=== PATIENT | male | born 1955 | race Caucasian/White ===

== ENCOUNTER 2024-04-16 11:20 | Inpatient (IN) | payer OTHER, SELFPAY ==
[2024-04-14] VITALS (12 sets, daily range): BP systolic 109–145; BP diastolic 58–100; BMI 23.0; BMI 22.6
[2024-04-14 01:48] LABS: % Eosinophils 1.6 % (0-6); % Immature Granulocytes 0.7 % (0-0.5); % Lymphocytes 12.5 % (20.5-51.1); % Monocytes 5.8 % (1.7-9.3); % Neutrophils 78.4 % (42.2-75.2); Absolute Basophils 0.1 10^3/uL (0-0.2); Absolute Eosinophils 0.1 10^3/uL (0-0.7); Absolute Immature Granulocytes 0.1 10^3/uL (0-0.05); Absolute Lymphocytes 0.8 10^3/uL (1.2-3.4); Absolute Monocytes 0.4 10^3/uL (0.1-0.6); Absolute Neutrophils 5.3 10^3/uL (1.4-6.5); Hematocrit 29.7 % (39.0-52.0); Hemoglobin 9.9 g/dL (13.0-18.0); Mean Corp Hgb Conc. 33.3 g/dL (33.0-37.0); Mean Corpuscular Hgb 31.6 pg (27.0-31.0); Mean Corpuscular Volume 94.9 fL (80.0-94.0); Mean Platelet Volume 9.9 fL (7.4-10.4); Nucleated Red Blood Cells % 0 % (-); Platelet Count 191 10^3/uL (130-400); Red Blood Cell Count 3.13 10^6/uL (4.70-6.10); Red Cell Dist. Width 14.3 % (11.5-14.5); White Blood Cell Count 6.7 10^3/uL (4.8-10.8)
[2024-04-14 02:05] LABS: ALT (SGPT) 18 U/L (0-50); AST (SGOT) 26 U/L (17-59); Albumin 4.1 g/dl (3.5-5.0); Alkaline Phosphatase 133 U/L (38-126); Blood Urea Nitrogen 17 mg/dl (9-20); Calcium 8.9 mg/dl (8.4-10.2); Carbon Dioxide 18 mmol/L (22-30); Chloride 92 mmol/L (98-107); Estimated Creatinine Clearance 64 ml/min; Glucose 187 mg/dl (70-99); Potassium 5.3 mmol/L (3.5-5.1); Sodium 124 mmol/L (135-145); Total Bilirubin 1.2 mg/dl (0.2-1.3); Total Protein 6.3 g/dl (6.3-8.2); eGFR > 60.00
--- NOTE | 2024-04-14 02:06 | ED.GENMED ---
History of Present Illness
General
Chief Complaint: Fainting/Passed Out
Source: patient
Time Seen by Provider: 04/14/24 01:52
History of Present Illness
History of Present Illness:
68-year-old male presents emergency room via ambulance after suffering a syncopal episode at home. Patient been suffering from nausea vomiting diarrhea for the past couple days. Today he went to go to the bathroom and began feeling dizzy. He fell
to the ground. He does believe he lost consciousness. Patient complaining that the collar that was placed on him by EMS is uncomfortable but no other complaints.
Past History
Past History
ED Past Medical History: CHF, HTN, Hypercholesterolemia, NIDDM and AL (2001)
ED Past Surgical History: Cardiac (Stents)
Social History
Tobacco: Smoker
Alcohol: Occasional
Personal:
Living: alone
Phy Exam
Physical Exam
Physical Exam:
General: Awake, Alert, Oriented X3. No acute distress.
Vitals: unremarkable
Head: Atraumatic
Eyes: Pupils equal, EOMI
Throat: Airway intact, no exudates, dry mucosa
Neck: Trachea midline
Lungs: Clear and equal b/l
Heart: Regular rate, no murmurs
Abd: Soft, Nontender, No pulsatile mass
Back: No significant tenderness palpation along the thoracic or lumbar spine
Neuro: Nonfocal
Skin: Warm, dry, no rash
Extremities: pulses equal b/l, no edema
Course
Orders/Labs/Results
Orders:
Orders
04/14/24
HF Check Daily Weights Video Routine
HF Limiting Fluids Video Routine
HF Limiting Sodium Video Routine
HF Recognizing Symptoms Video Routine
HF Taking Medicines Video Routine
HF What is it? Video Routine
HF When to Call for Help Video Routine
04/14/24 01:23
EKG [Electrocardiogram (*1)] Urgent
Reason for Study: Syncope
04/14/24 01:24
EKG- Treatment ONCE
04/14/24 01:38
Complete Blood Count/With Diff Urgent
Comprehensive Metabolic Panel Urgent
04/14/24 01:42
Troponin I Urgent
04/14/24 02:05
CT Cervical Spine W/o Iv Contr Urgent
Comment:
Reason For Exam: neck pain s/p fall
CT Head W/o Iv Contrast Urgent
Comment:
Reason For Exam: fall, head injury
04/14/24 02:07
0.9% Sodium Chloride 500 ml [Nss] 500 ml IV BOLUS
Ondansetron Injectable [Zofran] 4 mg IV NOW STA
04/14/24 04:58
Admit/Transfer Patient As Directed
Co-Sign Provider:
Level of Care: Observation services
Assign to:: Telemetry
Physician / Group: hospitalist
Diagnosis: syncope, hyponatremia
Reason for Telemetry: Syncope
Date to Stop Telemetry: 04/16/24
Time to Stop Telemetry: 11:00
PRN Pain Medication Management As Directed
May give lesser potent ordered pain med per pt: Yes
preference::
Protocol:: Medication orders for pain may be administered in a
manner that supports deferring to patient preference
when the pt is:
- Requesting an ordered lesser potent pain medication.
Least to most potent pain medications are defined
as: acetaminophen < NSAID < tramadol < opioids
(morphine, oxycodone, hydromorphone).
- Requesting a lesser dose of the same medication IF
ORDERED.
- Requesting a less intrusive route of administration
if both routes are prescribed by the provider (PO <
IV).
04/14/24 05:00
Code Status As Directed
Resuscitation Status: Do not resuscitate
Reached after discussion with pt or family/Healthcare POA: Yes
DNR Bracelet Application ONCE
04/14/24 05:57
Basic Metabolic Panel IN AM
Cortisol, Random IN AM
NT-proBNP IN AM
TSH IN AM
04/14/24 Breakfast
1800 calorie (15 carb) Diabetic
At Your Request: Full Participation
Does patient need a safe tray?: No
Fluid Restriction: 1200 mL/day (40 oz)
04/14/24 06:05
Acetaminophen [Tylenol] 650 mg PO Q4HPRN PRN
Docusate W/Senna [Senokot-S] 1 tablet PO BIDPRN PRN
Ipratropium/Albuterol Sulfate [Duoneb] 3 ml INH R Q4HPRN PRN
04/14/24 06:05
Echo 2D MMode Color/Doppler Routine
Reason for Study: syncope, h/o diastolic chf
CARDIOLOGY CONSULT Routine
Consulting Provider: Florentin Ross
Was physician already notified: No
Reason for consult: syncope, bradycardia w/ slow afib/flutter vs junctional rhythm
Consult Notification Routine
Specialty to Notify: Cardiology
Date consulting provider notified: 04/14/24
Time consulting provider notified: 07:51
Notified:: Provider
Comment: TT Notified
Consult Notification Routine
Specialty to Notify: Nephrology
Date consulting provider notified: 04/14/24
Time consulting provider notified: 07:54
Notified:: Provider
Comment: TT Notified
NEPHROLOGY CONSULT Routine
Consulting Provider: Radha Quevedo
Was physician already notified: No
Reason for consult: hyponatremia to 124, syncope.
Activity As Directed
Activity Level: With Assistance
Bedside Glucose Monitoring As Directed
Frequency: AC&HS
Orthostatic Vital Signs As Directed
Orthostatic VS Frequency: Daily
Vital Signs As Directed
Frequency: Per unit guidelines
Weight As Directed
Frequency: Daily
DX Deep Vein Thrombosis Video Routine
04/14/24 07:00
Dextrose 50%-Water [Dextrose 50% Syringe] 12.5 grams IV [id number] PRN
Flush (0.9% Sodium Chloride) [Flush (Nss)] See Dose Instructions IV PER PROTOCOL
Glucagon [GlucaGen] 1 mg IM PRN PRN
04/14/24 07:30
Insulin Aspart Corrective Low [Novolog Flexpen-Low Resistance] See Protocol SC AC
04/14/24 08:00
Amlodipine [Norvasc] 5 mg PO DAILY
Aspirin Low Dose EC [Aspir Low (Enteric Coated)] 81 mg PO DAILY
Budesonide/Formoterol 160/4.5 [Symbicort 160/4.5 Mcg Inhaler] 2 puff INH R BID
04/14/24 08:17
Norovirus by PCR Routine
PAULINE Source: Feces/Stool
Specimen Description:
04/14/24 09:14
Pt Screening Request from [facility] Routine
04/14/24 09:30
Sodium Zirconium Cyclosilicate [Lokelma] 10 gram PO TID@0600,1400,1800
04/14/24 10:15
0.9% Sodium Chloride 1000 ml [Nss] 1,000 ml IV 75 mls/hr
04/14/24 10:36
Osmolality, Random Urine Routine
Date Specimen was Collected: 04/14/24
Time Specimen was Collected: 10:32
Urinalysis Reflex To Culture Urgent
Date Specimen was Collected: 04/14/24
Time Specimen was Collected: 10:32
Urine Microscopic Reflex Cult Urgent
Urine Sodium Routine
Date Specimen was Collected: 04/14/24
Time Specimen was Collected: 10:32
04/14/24 10:51
Notify MD As Directed
Notify physician if: PTT is greater than or equal to 200.
04/14/24 11:00
Heparin 55259 Units/250 ml 25,000 units in 250 ml IV PER PROTOCOL
Weight to be used for heparin protocol in kilograms (kg):: 77.7
Protocol:: Cardiac Tx/Acute Coronary
PTT Goal Range to be used:: PTT 73 to 111 seconds
Order type:: Initial
INITIAL Infusion Dose (UNITS/KG/hr) & then follow protocol:: 12 units/kg/hr
Infusion Dose in UNITS/hr & then follow protocol (UNITS/hr):: 950
INFUSION RATE in mL/hr & then follow protocol (mL/hr):: 9.5
PTT less than or equal to 64 seconds:: Increase rate by 200 units/hr (+ 2 mL/hr)
PTT 64.1 to 72.9 seconds:: Increase rate by 100 units/hr (+ 1 mL/hr)
PTT 73 to 111 seconds:: Target Range. No change in rate.
PTT 111.1 to 130.9 seconds:: Decrease rate by 100 units/hr (- 1 mL/hr)
PTT 131 to 199.9 seconds:: HOLD for 1 hr. Then decrease rate by 200 units/hr (- 2 mL/hr)
PTT greater than or equal to 200 seconds:: HOLD for 2 hrs & Notify Provider. Then decrease by 200 units/hr (-
2 mL/hr)
Lab follow-up:: Each change, PTT q6h until 2 consecutive are therapeutic. Then PTT
daily.
04/14/24 11:26
PTT Urgent
Comment: Obtain baseline before beginning heparin infusion if not already collected
04/14/24 12:32
Furosemide [Lasix] 40 mg IV NOW STA
04/14/24 16:21
Bladder Scan As Directed
Follow Bladder Retention/Intermittent Cath Algorithm?: Yes
PRN if no void in __ hours: 6
Frequency: Per Retention Algorithm
If Bladder Scan Result >: 400
then:: Straight cath
Straight Cath As Directed
Frequency: Per Retention Algorithm
Additional Instructions: straight cath as needed per acute urinary retention algorithm for 24 hrs
Additional Instructions: for bladder scan greater than 400 mL
04/14/24 17:45
Basic Metabolic Panel Routine
04/14/24 18:00
Enoxaparin Sodium [Lovenox] 40 mg SC QPM
04/14/24 19:23
PTT Routine
04/14/24 21:02
Melatonin 5 mg PO NOW STA
04/14/24 22:00
Atorvastatin [Lipitor] 40 mg PO HS
Ramipril [Altace] 10 mg PO HS
Sotalol [Betapace] 80 mg PO HS
finasteride [Propecia] See Dose Instructions PO HS
04/15/24 03:33
PTT Routine
04/15/24 09:11
Furosemide [Lasix] 80 mg IV NOW ONE
04/15/24 12:04
Basic Metabolic Panel Routine
PTT Routine
04/15/24 12:55
INT (Intravenous Needle Therapy) As Directed
Comment: #20 IV gauge catheter
Notify MD As Directed
Notify physician if: no consent on chart
Surgical Procedure As Directed
Surgical Procedure: PPM
04/15/24 13:03
Protein/Creat Ratio (Random) Routine
Date Specimen was Collected: 04/15/24
Time Specimen was Collected: 13:02
04/15/24 17:58
PTT Urgent
04/15/24 20:46
Melatonin 5 mg PO NOW STA
04/16/24 00:43
PTT Urgent
04/16/24 Breakfast
NPO
Allow oral meds: Yes
Allow clear liquids: Sips of Clears
NPO for procedure after (time): midnight
04/16/24 06:09
Basic Metabolic Panel IN AM
Complete Blood Count/No Diff Q2D
Comment: Notify MD if platelet count is <130,000 or decreases by 50% from baseline
Glycohemoglobin (HgbA1c) Routine
PTT Routine
04/16/24 06:53
Bupivacaine Pf 0.5% [Sensorcaine 0.5% Single Dose] 30 ml .ROUTE .STK-MED ONE
Lidocaine 1% [Xylocaine 1%] 20 ml .ROUTE .STK-MED ONE
04/16/24 07:00
0.9% Sod Chloride 500 ml Irr [Nss Irrigation Bottle] 500 ml .ROUTE .STK-MED
CeFAZolin 1 GRAM [Ancef] 5 ml .ROUTE .STK-MED
CeFAZolin 2 GRAM [Ancef] 2 grams in 10 ml .ROUTE .STK-MED
04/16/24 07:46
0.9% Sod Chloride 500 ml Irr [Nss Irrigation Bottle] 500 ml .ROUTE .STK-MED
04/16/24 07:47
CeFAZolin 1 GRAM [Ancef] 5 ml .ROUTE .STK-MED
CeFAZolin 2 GRAM [Ancef] 2 grams in 10 ml .ROUTE .STK-MED
04/16/24 08:00
CeFAZolin 1 GRAM [Ancef] 1 gram 0.9% Sod Chloride 250 ml Irr [Nss Irrigation Bottle] 250 ml IRRIG CATH
CeFAZolin 2 GRAM [Ancef] 2 grams in 10 ml IV CATH
04/16/24 08:08
Add On- LAB Routine
Tests Added?: Hba1c
04/16/24 09:15
Change in Level of Care [Level of Care Change] As Directed
Level of Care: Inpatient admission
Reason for Hospitalization: bradycardia requiring PPM
Expected length of stay greater than two midnights?: Yes
ELOS- Estimated Length of Stay in days: 3
I certify the patient meets the requirements for IP care: Yes
04/16/24 11:00
Fentanyl Citrate/Pf [Sublimaze] 100 mcg .ROUTE .STK-MED ONE
Lidocaine HCl/Pf [Xylocaine-Mpf 1% Vial] 50 mg .ROUTE .STK-MED ONE
Midazolam HCl [Versed] 2 mg .ROUTE .STK-MED ONE
Propofol [Diprivan] 40 ml .ROUTE .STK-MED
DC Protocol for Telemetry ONCE
04/16/24 11:30
Insulin Aspart Corrective Mod [Novolog Flexpen-Moderate Resistance] See Protocol SC AC
04/17/24 02:57
Basic Metabolic Panel IN AM
04/18/24 06:00
Basic Metabolic Panel IN AM
Complete Blood Count/No Diff Q2D
Comment: Notify MD if platelet count is <130,000 or decreases by 50% from baseline
04/19/24 06:00
Basic Metabolic Panel IN AM
04/20/24 06:00
Complete Blood Count/No Diff Q2D
Comment: Notify MD if platelet count is <130,000 or decreases by 50% from baseline
04/22/24 06:00
Complete Blood Count/No Diff Q2D
Comment: Notify MD if platelet count is <130,000 or decreases by 50% from baseline
04/24/24 06:00
Complete Blood Count/No Diff Q2D
Comment: Notify MD if platelet count is <130,000 or decreases by 50% from baseline
04/26/24 06:00
Complete Blood Count/No Diff Q2D
Comment: Notify MD if platelet count is <130,000 or decreases by 50% from baseline
04/28/24 06:00
Complete Blood Count/No Diff Q2D
Comment: Notify MD if platelet count is <130,000 or decreases by 50% from baseline
04/30/24 06:00
Complete Blood Count/No Diff Q2D
Comment: Notify MD if platelet count is <130,000 or decreases by 50% from baseline
Abnormal Lab Results
04/14/24 04/14/24 04/14/24
01:38 05:57 08:04
WBC
RBC 3.13 L 10^6/uL
(4.70-6.10)
Hgb 9.9 L g/dL
(13.0-18.0)
Hct 29.7 L %
(39.0-52.0)
MCV 94.9 H fL
(80.0-94.0)
MCH 31.6 H pg
(27.0-31.0)
Abs Immat Gran (auto) 0.1 H 10^3/uL
(0-0.05)
Absolute Lymphs (auto) 0.8 L 10^3/uL
(1.2-3.4)
Immature Gran % 0.7 H %
(0-0.5)
Neutrophils % 78.4 H %
(42.2-75.2)
Lymphocytes % 12.5 L %
(20.5-51.1)
APTT
Sodium 124 L mmol/L 124 L mmol/L
(135-145) (135-145)
Potassium 5.3 H mmol/L 5.3 H mmol/L
(3.5-5.1) (3.5-5.1)
Chloride 92 L mmol/L 94 L mmol/L
(98-107) (98-107)
Carbon Dioxide 18 L mmol/L 20 L mmol/L
(22-30) (22-30)
BUN
Creatinine
Glucose 187 H mg/dl 135 H mg/dl
(70-99) (70-99)
Hemoglobin A1c
Alkaline Phosphatase 133 H U/L
(38-126)
Urine Ketones
Urine Bilirubin
Urine RBC
Urine Sodium
Urine Glucose
Urine Albumin (Reflex)
POC Glucose 124 H mg/dl
(70-99)
04/14/24 04/14/24
10:36 13:56 17:43
WBC
RBC
Hgb
Hct
MCV
MCH
Abs Immat Gran (auto)
Absolute Lymphs (auto)
Immature Gran %
Neutrophils %
Lymphocytes %
APTT
Sodium
Potassium
Chloride
Carbon Dioxide
BUN
Creatinine
Glucose
Hemoglobin A1c
Alkaline Phosphatase
Urine Ketones Trace A
(Negative)
Urine Bilirubin 1+ A
(Negative)
Urine RBC 3-6 A /HPF
(0-2)
Urine Sodium 8 L mmol/L
(30-90)
Urine Glucose 1+ A
(Negative)
Urine Albumin (Reflex) 1+ A
(Neg - Trace)
POC Glucose 121 H mg/dl 130 H mg/dl
(70-99) (70-99)
04/14/24 04/14/24 04/14/24
17:45 19:23 22:32
WBC
RBC
Hgb
Hct
MCV
MCH
Abs Immat Gran (auto)
Absolute Lymphs (auto)
Immature Gran %
Neutrophils %
Lymphocytes %
APTT 61.8 H Sec
(23.4-35.0)
Sodium 124 L mmol/L
(135-145)
Potassium
Chloride 96 L mmol/L
(98-107)
Carbon Dioxide
BUN 24 H mg/dl
(-20)
Creatinine 1.5 H mg/dL
(0.7-1.3)
Glucose 115 H mg/dl
(-99)
Hemoglobin A1c
Alkaline Phosphatase
Urine Ketones
Urine Bilirubin
Urine RBC
Urine Sodium
Urine Glucose
Urine Albumin (Reflex)
POC Glucose 149 H mg/dl
(99)
04/15/24 04/15/24 04/15/24
03:33 07:51 12:04
WBC
RBC
Hgb
Hct
MCV
MCH
Abs Immat Gran (auto)
Absolute Lymphs (auto)
Immature Gran %
Neutrophils %
Lymphocytes %
APTT 140.3 H Sec 75.6 H Sec
(23.4-35.0) (23.4-35.0)
Sodium 127 L mmol/L
(135-145)
Potassium
Chloride 96 L mmol/L
(98-107)
Carbon Dioxide
BUN 25 H mg/dl
(-20)
Creatinine 1.6 H mg/dL
(0.7-1.3)
Glucose 215 H mg/dl
(-99)
Hemoglobin A1c
Alkaline Phosphatase
Urine Ketones
Urine Bilirubin
Urine RBC
Urine Sodium
Urine Glucose
Urine Albumin (Reflex)
POC Glucose 121 H mg/dl
(70-99)
12/25/24 12/25/24 12/25/24
12:40 16:50 17:58
WBC
RBC
Hgb
Hct
MCV
MCH
Abs Immat Gran (auto)
Absolute Lymphs (auto)
Immature Gran %
Neutrophils %
Lymphocytes %
APTT 60.8 H Sec
(23.4-35.0)
Sodium
Potassium
Chloride
Carbon Dioxide
BUN
Creatinine
Glucose
Hemoglobin A1c
Alkaline Phosphatase
Urine Ketones
Urine Bilirubin
Urine RBC
Urine Sodium
Urine Glucose
Urine Albumin (Reflex)
POC Glucose 247 H mg/dl 149 H mg/dl
() (-)
04/15/24 04/16/24 04/16/24
20:45 00:43 06:09
WBC 4.4 L 10^3/uL
(4.8-10.8)
RBC 2.70 L 10^6/uL
(4.70-6.10)
Hgb 8.6 L g/dL
(13.0-18.0)
Hct 25.6 L %
(39.0-52.0)
MCV 94.8 H fL
(80.0-94.0)
MCH 31.9 H pg
(27.0-31.0)
Abs Immat Gran (auto)
Absolute Lymphs (auto)
Immature Gran %
Neutrophils %
Lymphocytes %
APTT 96.2 H Sec 123.0 H Sec
(23.4-35.0) (23.4-35.0)
Sodium 129 L mmol/L
(135-145)
Potassium
Chloride 96 L mmol/L
(98-107)
Carbon Dioxide
BUN 25 H mg/dl
(9-20)
Creatinine
Glucose 132 H mg/dl
(70-99)
Hemoglobin A1c 7.4 H %
(4.0-5.6)
Alkaline Phosphatase
Urine Ketones
Urine Bilirubin
Urine RBC
Urine Sodium
Urine Glucose
Urine Albumin (Reflex)
POC Glucose 269 H mg/dl
(70-99)
04/16/24
08:43
WBC
RBC
Hgb
Hct
MCV
MCH
Abs Immat Gran (auto)
Absolute Lymphs (auto)
Immature Gran %
Neutrophils %
Lymphocytes %
APTT
Sodium
Potassium
Chloride
Carbon Dioxide
BUN
Creatinine
Glucose
Hemoglobin A1c
Alkaline Phosphatase
Urine Ketones
Urine Bilirubin
Urine RBC
Urine Sodium
Urine Glucose
Urine Albumin (Reflex)
POC Glucose 140 H mg/dl
(70-99)
04/16/24 06:09
04/16/24 06:09
Vital Signs
Initial and Last Documented VS:
Initial Vital Signs
Temp Pulse Resp BP Pulse Ox
98.2 F 55 16 145/72 94
04/14/24 01:21 04/14/24 01:21 04/14/24 01:21 04/14/24 01:21 04/14/24 01:21
Last Documented Vital Signs
Temp Pulse Resp BP Pulse Ox
97.5 F 64 18 140/73 94
04/17/24 02:47 04/17/24 02:45 04/17/24 02:47 04/17/24 02:45 04/17/24 02:47
MDM/Problems Addressed
Differential Diagnosis Includes:
Dysrhythmia, seizure, dehydration
MDM/Problems Addressed:
Patient presents after passing out in the bathroom. He has had nausea vomiting diarrhea. Clinically he appears dry. Sodium is low on testing. Patient require hospitalization. Imaging shows no acute abnormality.
*Radiology
Radiology exam reviewed: radiology read reviewed
*Pulse Oximetry
Patient hypoxic: no
*EKG
Interpreted by ED Provider?: Yes
Interpretation: abnormal
Heart Rate: 58
Rate: bradycardiac
Rhythm: a-fib
Interval: normal interval
QRS Pattern: normal QRS
Ischemia: non-specific ST changes
*[employer] Interpretation
Rate: bradycardiac
Interpretation: abnormal
Rhythm: a-fib
*Critical Care Note
Total Time (30-74mins, 75-104mins- exclusive of procedures): Not Applicable
ED Attending Note
-
Portions of this chart may have been created with voice recognition software.� Occasional wrong word or��sound alike� substitutions may have occurred due to the inherent limitations of voice recognition software.
Discharge Plan
Departure
Patient Disposition: Admit
Date of Disposition: 04/14/24
Time of Disposition: 04:13
Admit to: Telemetry
Presentation/result/management discussed w/ accepting MD/DO: Hospitalist
Discharge Problem:
Syncope, Dehydration, Acute hyponatremia
Interventions
Interventions:
*Risk Screen - Suicide Last Done: 04/14/24 08:50
*General Assessment Last Done: 04/14/24 01:21
*Neglect/Abuse Screening Last Done: 04/14/24 01:21
ED- Fall Risk Assessment Last Done: 04/14/24 01:21
*ED COVID-19 Vaccine History Last Done: 04/14/24 01:21
*Nursing Disposition Last Done: 04/14/24 07:16
ED- Cardiac Assessment Last Done: 04/14/24 01:25
ED- Neurological Assessment Last Done: 04/14/24 01:25
Discharge Date and Time
Discharge Date/Time: 04/14/24 07:17
[2024-04-14 02:18] LABS: Troponin I 0.026 ng/ml
[2024-04-14] MEDS: ZOFRAN 4 MG IV (02:18)
[2024-04-14] MEDS: NSS 500 IV (02:21)
--- NOTE | 2024-04-14 04:40 | HPS.HSE ---
Family Physician
-
Family Physician: Zoltan Norris
Chief Complaint
-
Syncope
History of Present Illness
This is a 68-year-old with past medical history of atrial fibrillation on previously on anticoagulation now on sotalol and aspirin, hyperlipidemia, diastolic CHF, diabetes and hypertension who presented to the emergency department after suffering a
syncopal event at home.
Patient tells me that he has been having nausea for the last 2 to 3 days. He denied actual vomiting. He denied diarrhea. He reports that he was able to tolerate some p.o. without nausea up until today. Prior to coming to the emergency department
he reported having a days worth of intermittent vomiting and diarrhea. Today was the only day reported having the diarrhea. He denied fevers or chills. He denied palpitations lightheadedness or dizziness. He denied having any chest pain.
He reported that in the evening he went to use the bathroom and then found himself on the floor. He was not able to recall exactly how he fell. By the time he came to he was surrounded by EMS. No further corroborating details are available.
Since then the patient continued to denying chest pain, palpitations, orthopnea or PND.
Of note the patient states the last time he took his took his Lasix was 4 days ago. He only takes it intermittently and says that that is okay with his transplant worker. He reports recent dyspnea on exertion for several weeks. States that his PMD
found him to be wheezing. He does have longstanding tobacco smoke. He was placed on prednisone for a few days with significant improvement. He is now on as needed albuterol. He still reports dyspnea on exertion.
Denies any recent acute weight gain or weight loss.
In the emergency department he was afebrile, blood pressure was 120/60 with a pulse in the 50s. He was satting 98% on room air. ECG showed junctional rhythm versus slow atrial flutter rates in the 50. Troponin was negative. CBC was unremarkable.
Chemistries remarkable for a sodium of 124. Potassium was 5.3 and bicarb was 18. His creatinine 1.2. CT scan of the head and CT C-spine is negative for any acute intracranial process.
Medical History
Past Medical History
Past Medical History: Reports Arrhythmia (Atrial fibrillation,), CAD, CHF (Diastolic dysfunction), COPD, HTN and Hypercholesterolemia
Past Surgical History: Reports Other
Additional Past Surgical History:
PES excavatum s/p surgery
Social History
Tobacco: Smoker
Alcohol: None
Drug: None
Personal: Single
Living: With Family
Family History
Family History: Not pertinent
Allergies / Home Medications
Allergies reflects when Allergies were last updated in [facility].
Home Medications with original date entered in [facility]
Allergy/Medication List:
Allergies
Allergy/AdvReac Type Severity Reaction Status Date / Time
No Known Allergies Allergy Verified 04/14/24 01:20
Home Medications
amlodipine 5 mg tablet 5 mg PO DAILY 04/23/14
finasteride 1 mg tablet (Propecia) 1 mg PO HS 06/22/15
ramipril 10 mg capsule 10 mg PO HS 06/22/15
albuterol sulfate 90 mcg/actuation aerosol inhaler 1 puff inhalation R Q4HPRN PRN WHEEZING #1 puff 06/24/15
atorvastatin 40 mg tablet 40 mg PO HS 11/12/18
metformin 500 mg tablet,extended release 24 hr 2,000 mg PO QPM 11/12/18
sildenafil 100 mg tablet (Viagra) 100 mg PO DAILYPRN PRN ED 11/12/18
aspirin 81 mg tablet,delayed release 81 mg PO DAILY #30 tabs 11/14/18
furosemide 40 mg tablet 40 mg PO DAILY 04/14/24
sotalol 80 mg tablet 80 mg PO HS 04/14/24
Review of Systems
-
Unable to obtain full review of systems at this time due to: Dementia
History Source: Patient
Constitutional: Reports No Symptoms
EENT: Reports No Symptoms
Respiratory: Reports Trouble Breathing
Cardiac: Reports No Symptoms
Abdomen/GI: Reports No Symptoms
: Reports No Symptoms
Musculoskeletal: Reports No Symptoms
Neurological: Reports No Symptoms
Endocrine: Reports No Symptoms
Hematologic/Lymphatic: Reports No Symptoms
Psych: Reports No Symptoms
Physical Exam
Vital Signs
Vital Signs
Temp Pulse Resp BP Pulse Ox
98.2 F 57 15 124/59 93
04/14/24 01:21 04/14/24 03:15 04/14/24 03:15 04/14/24 03:00 04/14/24 03:15
Physical Exam
General: Well Developed, Well Nourished, No Apparent Distress and Comfortable
HEENT: NormoCephalic, Anicteric, Moist mucous membranes and Atraumatic
Respiratory: Wheezes
Cardiac: S1/S2, Regular Rhythm and Bradycardia
Breast: Deferred by me
GI: Soft, Non Tender, Non Distended and Normal Bowel Sounds
Rectal: Deferred by Provider
Genito-urinary: Deferred by me
Musculoskeletal: No Clubbing, No Cyanosis and No Edema
Skin: Warm
Neuro: AO x 3, No Motor Deficits, Cranial Nerves Intact and No Sensory Deficits
Hematologic/Lymphatic: No Lymphadenopathy
Laboratory Results
-
04/14/24 01:38
04/14/24 01:38
Laboratory Results
Total Bilirubin 1.2 mg/dl (0.2-1.3) 04/14/24 01:38
AST 26 U/L (17-59) 04/14/24 01:38
ALT 18 U/L (0-50) 04/14/24 01:38
Alkaline Phosphatase 133 U/L (38-126) H 04/14/24 01:38
Troponin I 0.026 ng/ml 04/14/24 01:42
Data Reviewed
-
CT Scan: Report Reviewed by me
Medical Tests (Nuc Med, Echo, EKG etc): Image Personally Visualized and interpreted
Lab Data: Labs Reviewed by me
Old Records: Reviewed
Impression/Plan
-
IMPRESSION:
68-year-old with history of diastolic CHF, hypertension, atrial fibrillation not currently anticoagulated presents to the emergency department after having a syncopal episode at home. Unclear etiology of syncope and patient does not recollect
anything except that was found on the floor. ECG showed slow atrial flutter with rates in the 50s, troponin was negative, CBC was unremarkable. Labs were notable for a sodium of [address] but otherwise mostly unremarkable. CT of the head and C-spine
shows no acute trauma. There were no acute intracranial process.
PLAN:
1. Syncope - Unexplained. Question of recent diarrhea, patient however only endorsed one episode today. Nasuea but no continous vomiting. No diarrhea in ED. Possibly vasovagal. Concern for dehydration remains and given transient bradycardia
possibly associated with his ECG with junctional rhythm.
- admit to telemetry observation
- hold lasix, NS gentle hydration
- check orthostatic vs
- monitor on tele, echo in am
- cardiology consult regarding bradycardia and junctional rhythm
2. Hyponatremia - H/O hyponatremia previously in 2016 in the setting of CHF exacerbation. Now only on intermittent lasix. No recent serum sodium. No antidepressants.
- given question of syncope/orthostasis, hold off on fluid restriction
- check orthostatic as above and give iv fluids if orthostatic
- check bnp and echo as above
- urine na, osm
- tsh and random cortisol
3. CHF - h/o diastolic chf, ef 50-60% on last echo. No known valvular insufficiency
- holding lasix for now
- continue amlodipine
4. DM II
-hold metformin
- sliding scale insulin for now
5. AFIB
- off anticoagulation, unclear reason (was previously on Xarelto, folllowed by Dr. Gonsales)
- continue sotalol for now
6. COPD - wheezing with expiratory prolongation. No severe exacerbation. Will benefit from long acting agonist or lama
- prn nebs for now
- symbicort for now, if heart rate up consider tiotropium
DVT PPX - lovenox sq
Code status - DNR
[2024-04-14 06:21] LABS: Blood Urea Nitrogen 18 mg/dl (9-20); Calcium 8.5 mg/dl (8.4-10.2); Carbon Dioxide 20 mmol/L (22-30); Chloride 94 mmol/L (98-107); Estimated Creatinine Clearance 64 ml/min; Glucose 135 mg/dl (70-99); Potassium 5.3 mmol/L (3.5-5.1); Sodium 124 mmol/L (135-145); eGFR > 60.00
[2024-04-14 06:30] LABS: NT-proBNP 9650 pg/ml
[2024-04-14 08:00] LABS: Cortisol, Random 25.3 ug/dl; TSH 2.57 uIU/ml (0.47-4.68)
[2024-04-14 08:05] LABS: Glucose - Point of Care 124 mg/dl (70-99)
[2024-04-14] MEDS: ASPIR LOW (ENTERIC COATED) 81 MG PO (08:12)
[2024-04-14] MEDS: NORVASC 5 MG PO (08:12)
[2024-04-14] MEDS: SYMBICORT 160/4.5 MCG INHALER 2 PUFF INH ×2 (08:29→19:46)
--- NOTE | 2024-04-14 08:48 | CON.CAR ---
Addendum entered and electronically signed by ARCENIO Patel 04/14/24 12:33:
PASP significantly elevated. IVC dilated. Furosemide 40mg IV x 1 now.
Addendum entered and electronically signed by Amy Vital MD 04/14/24 11:51:
Patient is seen and evaluated personally. I agree with the note, documentation and plan of care as documented below.
Briefly, 68-year-old gentleman known to Dr. Garcia with persistent atrial fibrillation maintained on sotalol with noncompliance with anticoagulation therapy and history of coronary disease status post PCI in 2001, HFpEF with NYHA class III, MR
moderate, diabetes type 2, longstanding tobacco abuse presented with syncope and slow ventricular response in persistent atrial fibrillation. Patient is on sotalol 80 mg once a day and is not taking anticoagulation therapy regularly. He was noted
to be in severe bradycardia with heart rate in 30s and significant symptoms associated with bradycardia along with syncope. Given patient's slower heart rate despite on low-dose sotalol even once a day, patient is tachybradycardia syndrome and
would benefit from dual-chamber pacemaker. He is already on sotalol and still in atrial fibrillation. He reports that he goes in and out of rhythm. He is not n.p.o. and not able to proceed with the pacemaker at this time. Will plan for
dual-chamber pacemaker on . N.p.o. after midnight on Saturday night.
Given patient's noncompliance with Xarelto, we will start patient on heparin. Stop heparin 6 hours before the pacemaker.
Original Note:
Consultation
Consultation Request
Date/Time Consultation Requested: 04/14/2024 06:00
Date/Time Consultation Performed: 04/14/2024 08:45
Requesting Provider: Dr. Portillo
Performing Provider: ARCENIO Au for Dr. Ross
Reason for Consultation: Sycnope, bradycardia
Medical History
-
Chief Complaint: Syncope
History of Present Illness:
Gallito Disla is a 68 year old male (known to Dr. Garcia and Dr. Vital) with persistent atrial fibrillation (on sotalol), coronary artery disease (PCI 2001), HFpEF, mitral regurgitation, dyslipidemia, type 2 diabetes mellitus, and longstanding
tobacco abuse who presented to the emergency department with a chief complaint of syncope. He reports having nausea, vomiting, and diarrhea prior to the event at home. He endorsed poor oral intake. He denies a prodrome. He found himself on the
floor in the bathroom. EKG in the emergency department showed slow atrial fibrillation. He is not on oral anticoagulation. He is not sure how long he has been off of his Xarelto. He endorses taking his furosemide as needed. He has not taken it
for several days as he had nausea/vomiting/diarrhea. Labs show mild hyperkalemia, hyponatremia, and elevated proBNP at 9650. He has anemia which appears chronic. He denies abnormal bleeding.
Past Medical History
Past Medical History: Arrhythmias (Persistent atrial fibrillation), CAD, CHF, Hypercholesterolemia, NIDDM and Valvular Disease (Mitral regurgitation)
Social History
Tobacco: Smoker
Alcohol: Occasional (3 times per week)
Drug: None
Personal: Single
Living: With Family
Family History
Family History: Reviewed & Not Pertinent
Allergies / Home Medications
Allergy/AdvReac Type Severity Reaction Status Date / Time
No Known Allergies Allergy Verified 04/14/24 01:20
�Medication �Instructions �Recorded �Confirmed �Type
amlodipine 5 mg tablet 5 mg PO DAILY 04/23/14 04/14/24 History
finasteride 1 mg tablet (Propecia) 1 mg PO HS 06/22/15 04/14/24 History
ramipril 10 mg capsule 10 mg PO HS 06/22/15 04/14/24 History
albuterol sulfate 90 mcg/actuation 1 puff inhalation R Q4HPRN PRN 06/24/15 04/14/24 Rx
aerosol inhaler WHEEZING #1 puff
atorvastatin 40 mg tablet 40 mg PO HS 11/12/18 04/14/24 History
metformin 500 mg tablet,extended 2,000 mg PO QPM 11/12/18 04/14/24 History
release 24 hr
sildenafil 100 mg tablet (Viagra) 100 mg PO DAILYPRN PRN ED 11/12/18 04/14/24 History
aspirin 81 mg tablet,delayed 81 mg PO DAILY #30 tabs 11/14/18 04/14/24 Rx
release
furosemide 40 mg tablet 40 mg PO DAILY 04/14/24 04/14/24 History
sotalol 80 mg tablet 80 mg PO HS 04/14/24 04/14/24 History
Review of Systems
-
History Source: Patient
All other systems: Negative unless noted
Constitutional: Fatigue
EENT: No Symptoms
Respiratory: No Symptoms
Cardiac: No Symptoms
Abdomen/GI: Nausea and Diarrhea
: No Symptoms
Musculoskeletal: No Symptoms
Skin: No Symptoms
Neurological: No Symptoms
Endocrine: No Symptoms
Hematologic/Lymphatic: No Symptoms
Physical Exam
Vital Signs
Temp Pulse Resp BP Pulse Ox
98.2 F 59 16 113/61 96
04/14/24 07:35 04/14/24 08:33 04/14/24 08:33 04/14/24 07:00 04/14/24 08:33
Lab Results
04/14/24 01:38
04/14/24 05:57
Troponin I 0.026 ng/ml 04/14/24 01:42
Xgq-H-Txobrnhyqym Pept 9650 pg/ml 04/14/24 05:57
Physical Exam
General: Well Developed, Well Nourished, No Apparent Distress and Comfortable
HEENT: Normocephalic, Anicteric and Moist Mucous Membranes
Respiratory: Clear and Non Labored Respirations
Cardiac: S1/S2, Irregular Rhythm and Murmur
Breast: Deferred by me
GI: Soft, Non Tender, Non Distended and Normal Bowel Sounds
Rectal: Deferred by Provider
Genito-urinary: No Costovertebral Tender
Musculoskeletal: No Clubbing and No Cyanosis
Skin: Warm and Dry
Neuro: AO x 3
Psych: Calm
Impression / Plan
-
IMPRESSION/PLAN: 68M with persistent atrial fibrillation (on sotalol), coronary artery disease (PCI 2001), HFpEF, mitral regurgitation, dyslipidemia, type 2 diabetes mellitus, and longstanding tobacco abuse who presented to the emergency department
with a chief complaint of syncope.
Primary parks and recreation worker: Dr. Garcia
Syncope
-Vasovagal versus cardiac
-Echocardiogram today
-Rates slow, stop sotalol
Persistent atrial fibrillation
-Slow rates, hold AV codie agents, stop antiarrhythmic therapy
-Oral Anticoagulation: None, he was on Xarelto in the past, it was not discontinued due to abnormal bleeding, start heparin gtt
-[id number]: score 5 (Heart failure, HTN, Diabetes Mellitus, Vascular disease, age 65-74)
Diarrhea with nausea and vomiting - norovirus pending
Hyponatremia
Hyperkalemia
HFpEF, chronic
-Would not give diuretic given active nausea/vomiting/diarrhea
-He denies shortness of breath and orthopnea
-Trend daily weight, I/O, and BMP
Mitral regurgitation, at least moderate in 2019, update echocardiogram
Coronary artery disease
-Prior PCI 2001, on ASA
-Chest pain-free
Hypertension
NIDDM, per primary
Dyslipidemia, on atorvastatin 40 mg
COPD, no acute exacerbation
Longstanding tobacco abuse, cessation recommended
--- NOTE | 2024-04-14 09:14 | PTCARENOTE ---
Patient received from the ED. Reports one loose stool around midnight and poor appetite since Saturday. Denies symptoms now. Reports worsening shortness of breath especially when he was walking up the stairs to bed. Course breath sound. Contracted
left 4th and 5th fingers. Did hit the back of his bed, some redness, nothing open. Minor cuts on fingers, not related to his fall he said. eating breakfast, call marrero in reach
--- NOTE | 2024-04-14 09:41 | PTCARENOTE ---
A-fib hr 40-50's, with about 2 second pauses. Patient sitting on side of bed eating breakfast
--- NOTE | 2024-04-14 09:59 | W.PN.UPDATE ---
Update Note
Progress Note Update
Patient seen and examined after postmidnight admission. No new complaints. Vital signs stable. No acute distress, awake and alert, bradycardic, irregular irregular rhythm, normal S1-S2. Clear to auscultation bilaterally. Cranial nerves II to
XII are intact. Start Lokelma for persistent hyperkalemia. Start NS @ 75cc/hr. Rest of plan as outlined in the H&P done after MN.
[2024-04-14] MEDS: LOKELMA 10 GRAM PO ×3 (11:01→17:37)
[2024-04-14] MEDS: NSS 1000 IV (11:01)
[2024-04-14 11:03] LABS: Urine Albumin 1+ (Neg - Trace); Urine Bilirubin 1+ (Negative); Urine Character Clear (Clear); Urine Color Yellow; Urine Glucose 1+ (Negative); Urine Ketone Trace (Negative); Urine Leukocyte Negative (Negative); Urine Nitrite Negative (Negative); Urine Occult Blood Negative (Negative); Urine Specific Gravity 1.025 (<1.030); Urine Urobilinogen 1+ (Neg - 1+)
[2024-04-14 11:27] LABS: Urine Sodium 8 mmol/L (30-90)
--- NOTE | 2024-04-14 11:33 | PTCARENOTE ---
Bedside ECHO completed. Patient comfortable at rest. A-fib in the 40's. PTT collected. IVF started. Berniema given
[2024-04-14 11:36] LABS: Urine Amorphous Seen; Urine Hyaline Cast >15 /LPF (0-2)
[2024-04-14 11:50] LABS: APTT 32.3 Sec (23.4-35.0)
[2024-04-14 12:03] LABS: Osmolality Urine 404 mOsm/kg (300-900)
[2024-04-14] MEDS: HEPARIN 25000 UNITS/250 ML IV (12:06)
--- NOTE | 2024-04-14 12:49 | CM ---
Chart reviewed. Patient is independent of ADLS, lives with his brother and MARQUEZ in a [address], 2 [facility], 0 DME. Patient waiting for a PPM on 04/16 Plan is for the patient to return home. CM to follow
[2024-04-14] MEDS: LASIX 40 MG IV (13:37)
[2024-04-14 13:58] LABS: Glucose - Point of Care 121 mg/dl (70-99)
--- NOTE | 2024-04-14 15:31 | W.CON.NEPH ---
Addendum entered and electronically signed by Radha Quevedo MD 04/14/24 16:21:
high ADH could be from cardiorenal, also from COPD too
Original Note:
Medical History
-
Chief Complaint: syncope
History of Present Illness:
68-year-old with past medical history of atrial fibrillation on on sotalol and aspirin and noncompliance to AC , hyperlipidemia on Atorvastatin, diastolic CHF, mod MR on lasix 40mg takes intermittently for edema, diabetes on metformin, CAD s/p PCI
in 2001 and hypertension on Amlodipine who presented to the emergency department after suffering a syncopal event at home on 04/13. Pt reportedly had few days intermittent vomiting and diarrhea on admit. he went to use the bathroom and then found
himself on the floor, family heard the noise and called EMS. He reports recent dyspnea on exertion for several weeks with wheezing which improved with prednisone for a few days. He is now on as needed albuterol. in ER he noted in Afib but slow
ventricular response. Cardiology saw him and planing PPM on . On admit his sodium was 124. k at 5.3, bicarb 18. Nephrology consulted to manage hyponatremia. He received total of 0.5lit of NS since admit. Echo shows severe pulm HTN, BNP
elevated. Denies any fever, cp. no PND or orthopena. no abd pain. no dysuria. He is not sure if follows FR with h/o CHF.
H/o hyponatremia in setting of CHF in 2015.
Past Medical History
Atrial fibrillation, CAD, CHF (Diastolic dysfunction), COPD, HTN and Hypercholesterolemia
Past Surgical History: Other (PES excavatum s/p surgery)
Social History
Tobacco: Smoker (2PPD since age of 10)
Alcohol: Occasional (3xweek, 5beer in sitting)
Drug: None
Personal: Single
Living: With Family
Family History
Family History: Not Pertinent
Allergies / Home Medications
Allergy/AdvReac Type Severity Reaction Status Date / Time
No Known Allergies Allergy Verified 04/14/24 01:20
�Medication �Instructions �Recorded �Confirmed �Type
amlodipine 5 mg tablet 5 mg PO DAILY 04/23/14 04/14/24 History
finasteride 1 mg tablet (Propecia) 1 mg PO HS 06/22/15 04/14/24 History
ramipril 10 mg capsule 10 mg PO HS 06/22/15 04/14/24 History
albuterol sulfate 90 mcg/actuation 1 puff inhalation R Q4HPRN PRN 06/24/15 04/14/24 Rx
aerosol inhaler WHEEZING #1 puff
atorvastatin 40 mg tablet 40 mg PO HS 11/12/18 04/14/24 History
metformin 500 mg tablet,extended 2,000 mg PO QPM 11/12/18 04/14/24 History
release 24 hr
sildenafil 100 mg tablet (Viagra) 100 mg PO DAILYPRN PRN ED 11/12/18 04/14/24 History
aspirin 81 mg tablet,delayed 81 mg PO DAILY #30 tabs 11/14/18 04/14/24 Rx
release
furosemide 40 mg tablet 40 mg PO DAILY 04/14/24 04/14/24 History
sotalol 80 mg tablet 80 mg PO HS 04/14/24 04/14/24 History
Review of Systems
-
All complete 12 point ROS have been inquired and found negative other than noted in HPI
Physical Exam
Vital Signs
Vital Signs
Temp Pulse Resp BP Pulse Ox
98.5 F 45 18 132/65 96
04/14/24 15:10 04/14/24 09:30 04/14/24 15:10 04/14/24 07:34 04/14/24 15:10
Lab Results
WBC 6.7 10^3/uL (4.8-10.8) 04/14/24 01:38
RBC 3.13 10^6/uL (4.70-6.10) L 04/14/24 01:38
Hgb 9.9 g/dL (13.0-18.0) L 04/14/24 01:38
Hct 29.7 % (39.0-52.0) L 04/14/24 01:38
Plt Count 191 10^3/uL (130-400) 04/14/24 01:38
Sodium 124 mmol/L (135-145) L 04/14/24 05:57
Potassium 5.3 mmol/L (3.5-5.1) H 04/14/24 05:57
Chloride 94 mmol/L (98-107) L 04/14/24 05:57
Carbon Dioxide 20 mmol/L (22-30) L 04/14/24 05:57
BUN 18 mg/dl (9-20) 04/14/24 05:57
Creatinine 1.2 mg/dL (0.7-1.3) 04/14/24 05:57
eGFR > 60.00 04/14/24 05:57
Glucose 135 mg/dl (70-99) H 04/14/24 05:57
Calcium 8.5 mg/dl (8.4-10.2) 04/14/24 05:57
Xbj-V-Sgppykfxsxs Pept 9650 pg/ml 04/14/24 05:57
Albumin 4.1 g/dl (3.5-5.0) 04/14/24 01:38
echo:
LV ejection fraction is 70-75%. No regional wall motion abnormalities are
seen.
-Enlarged right ventricular size. Moderately reduced right ventricular
systolic function.
-Moderately dilated left atrium. Moderately dilated right atrium.
-Bi-leaflet mitral valve prolapse with severe, eccentric mitral regurgitation
with Coanda effect.
-Severe tricuspid regurgitation. Estimated pulmonary artery pressure of 90-95
mmHg.
-The IVC is dilated and does not collapse.
Compared to prior study of 11/13/2018, significantly progressive mitral
regurgitation and tricuspid regurgitation are now noted. PASP has
significantly increased (previously [address] head:
IMPRESSION:
There are no acute intracranial abnormalities.
There is moderate diffuse cortical atrophy with moderate nonspecific white matter changes as described above
C spineCT:
IMPRESSION:
No acute abnormalities
Multilevel cervical degenerative disc disease
Physical Exam
General: Awake, Alert, Oriented, AOx3, No Distress and Nontoxic
HEENT: EOMI, Anicteric, Conjunctivae Clear and Other (JVD angle of jaw)
Respiratory: Wheezes, Normal Excursion and Nonlabored Respirations
Cardiac: S1/S2 and Regular Rate/Rhythm
Breast: Deferred by me
Abdomen: Soft, Nontender and Nondistended
Musculoskeletal: No Cyanosis and No Edema
Skin: No Rash
Neuro: Nonfocal/Grossly Intact
Psych: Mood/afflect pleasant, Insight/judgement good and Appropriate
Data Reviewed
-
Radiology: Report Reviewed by me, Discussed with Patient and Discussed with Family
Labs: Labs Reviewed by me, Discussed with Patient and Discussed with Family
Assessment/Plan
-
IMP:
Syncope
Hyponatremia
Afib
mild hyperkalemia
non gap met acidosis
Acute on chr CHF diastolic,
severe pulm HTN, severe TR on echo
MVP with severe MR
n/v/d [employer]
DM II
COPD
HLD
Plan:
A/w syncope, h/o n/v /d
afib with bradycardia, plan PPM on 04/16
hyponatremia-suspect hypervolemia, elevated BNP
echo results noted, severe pulm HTN, severe TR, severe MR
U osmo 404, u na low at 8 suggest decrease in effective art flow-cardiorenal
TSH and cortisol were ok
will stop IVF and cont diuretics
recheck labs later today, if sodium still not improving could try samsca
maintain FR 40 ounces/day
BP are stable on Amlodipine
mild hyperkalemia-s/p Lokelma, expect to improve with lasix
monitor met acidosis
follow h/h
labs later today
d/w pt and family
[2024-04-14 17:45] LABS: Glucose - Point of Care 130 mg/dl (70-99)
[2024-04-14 18:14] LABS: Blood Urea Nitrogen 24 mg/dl (9-20); Calcium 8.7 mg/dl (8.4-10.2); Carbon Dioxide 22 mmol/L (22-30); Chloride 96 mmol/L (98-107); Estimated Creatinine Clearance 50 ml/min; Glucose 115 mg/dl (70-99); Potassium 4.9 mmol/L (3.5-5.1); Sodium 124 mmol/L (135-145); eGFR 49.77
[2024-04-14 19:48] LABS: APTT 61.8 Sec (23.4-35.0)
[2024-04-14] MEDS: MELATONIN 5 MG PO (21:43)
[2024-04-14] MEDS: LIPITOR 40 MG PO (21:43)
[2024-04-14 22:33] LABS: Glucose - Point of Care 149 mg/dl (70-99)
[2024-04-15] VITALS (11 sets, daily range): BP systolic 104–142; BP diastolic 47–72; PULSE 48–54; BMI 22.5
[2024-04-15 04:07] LABS: APTT 140.3 Sec (23.4-35.0)
[2024-04-15] MEDS: LOKELMA 10 GRAM PO (07:19)
--- NOTE | 2024-04-15 07:37 | PTCARENOTE ---
Pt AFib on monitor with HR 50s. HR dropped as low as 24. Pt had a pause 6.34 sec. BP 122/64 PlOx 96%. Pt was asleep at that time and denied CP, lightheadedness, or any other symptoms.
[2024-04-15 07:53] LABS: Glucose - Point of Care 121 mg/dl (70-99)
[2024-04-15] MEDS: SYMBICORT 160/4.5 MCG INHALER 2 PUFF INH ×2 (07:55→17:13)
[2024-04-15] MEDS: ASPIR LOW (ENTERIC COATED) 81 MG PO (07:59)
[2024-04-15] MEDS: NORVASC 5 MG PO (07:59)
--- NOTE | 2024-04-15 08:55 | PTCARENOTE ---
Assumed care at 0700. Patient AO x3. Coarse breath sounds, frequent non-productive cough, 98% room air. A-Fib in the 50's, BP 110/61, denies chest pain or lightheadedness. Appetite good, no bowel movements yesterday or overnight, denies N/V. Plan of
care reviewed, call marrero in reach
--- NOTE | 2024-04-15 08:59 | W.PN.HOSP.TC ---
Today's Communication/Plan
-
PPM tomorrow
Assessment / Plan
Assessment / Plan
Gen: NAD, AAOx3.
Eyes: EOMI, PERRLA, no scleral icterus.
Neck: supple.
CV: jeff, irreg/irreg, +S1/S2, no m/r/g.
Resp: CTAB, no rales, wheezes, or rhonchi.
Abd: +BS, soft, NT, ND
Skin: No rashes.
Neuro: CN 2-12 intact, non-focal.
Psych: Normal mood and affect.
Echo: EF 70-75%. No RWMA. Enlarged RV with moderately reduced RV systolic fxn. Mod dilated LA/RA. Severe MR/TR, PASP 90-95mmHg. IVC is dilated and does not collapse. Compared to prior study of 11/13/2018, significantly progressive mitral
regurgitation and tricuspid regurgitation are now noted. PASP has significantly increased (previously [address] brain: No acute intracranial abnormalities. Moderate diffuse cortical atrophy with moderate nonspecific white matter changes as described above.
CT C-spine: No acute abnormalities. Multilevel cervical degenerative disc disease.
Syncope:
-likely due to bradycardia and possibly exacerbated by a vasovagal episode with diarrhea
-ECG (read by me): afib @ 58, L-axis, no acute ST/TW changes
-also noted to have junctional rhythm on admission
-cardiology following
-Check orthostatic vital signs
-for PPM 04/16/24
Acute on chronic HFpEF:
-no echo findings as above
-s/p Lasix 40mg IV On 04/14/24, Lasix 80mg IV this AM
-daily wts, I/Os
Hyponatremia:
-renal following, discussed with Dr. Quevedo. Will order FR.
-TSH/cortisol normal
Persistent afib:
-h/o medical noncompliance
-cont heparin gtt
-for PPM tomorrow with bradycardia
Other problems:
Hyperkalemia: resolved with Lokelma
DM2: SSI/accuchecks
KIYA: due to CRS, trend Cr for now as would like to avoid IVFs with Acute on chronic HFpEF
COPD (due to tobacco abuse disorder), not in acute exac: cont Symbicort
CAD: h/o PCI 2001, cont ASA/statin
DNR/heparin gtt
Total time spent on today's encounter was 50 minutes which included time spent in counseling the patient/family regarding diagnosis and treatment plan as listed above, goals of care, and symptom management. Case was discussed with nursing staff,
specialists, and care coordinators/case management. All labs and imaging personally reviewed by me. Remainder the time spent in detailed review of previous records, lab data, imaging, and other medical provider documentation.
Anticipated Discharge: 24 - 48 hours
Subjective/Interval History
-
Date of Service: April 15, 2024
Denies chest pain or shortness of breath.
Objective Data
-
Labs:
Laboratory Results
04/15/24 04/15/24 04/15/24
03:33 06:26 11:30
APTT 140.3 H Pending
Sodium Pending
Potassium Pending
Chloride Pending
Carbon Dioxide Pending
BUN Pending
Creatinine Pending
Glucose Pending
Calcium Pending
Vital Signs:
Vital Signs
Temp Pulse Resp BP Pulse Ox
98.6 F 58 16 122/53 98
04/15/24 08:02 04/15/24 07:59 04/15/24 08:02 04/15/24 06:38 04/15/24 08:02
I&O
04/14/24 04/15/24 04/16/24
06:59 06:59 06:59
Intake Total 1130 / 1130
Output Total 960 / 960
Balance 170 / 170
--- NOTE | 2024-04-15 09:02 | W.PN.CD ---
Today's Communication / Plan
-
- PPM in AM
-Continue diuresis
Impression / Plan
-
IMPRESSION/PLAN: 68M with persistent atrial fibrillation (on sotalol), coronary artery disease (PCI 2001), HFpEF, mitral regurgitation, dyslipidemia, type 2 diabetes mellitus, and longstanding tobacco abuse who presented to the emergency department
with a chief complaint of syncope.
Primary wrapper operator: Dr. Garcia
Syncope
-Vasovagal versus cardiac
-With slower rates, possible conversion pause with Sotalol on board
-Severe bradycardia noted - 30s
-Echocardiogram 04/14/24: LVEF 75% moderately dilated atria with severe MR and PA pressure of 90
-Rates slow - needs rate / rhythm control
-Sotalol is ineffective and remains in AF but likely will help with PPM in place and increase the dose to regular dose of 80 mg BID.
-PPM tomorrow
-NPO after midnight.
CHF
Severe MR and TR
Significantly elevated PA pressure and dilated and non- collapsing IVC
Diuresis with IV Lasix
Persistent atrial fibrillation
-Slow rates, hold AV codie agents, stop antiarrhythmic therapy
-Oral Anticoagulation: None, he was on Xarelto in the past, it was not discontinued due to abnormal bleeding, start heparin gtt
-[id number]: score 5 (Heart failure, HTN, Diabetes Mellitus, Vascular disease, age 65-74)
KIYA
Cr is rising now
could be due to bradycardia and lowere cardiac output.
-Plan for PPM will help with cardiac output
Diarrhea with nausea and vomiting - norovirus pending
Hyponatremia
Hyperkalemia
-Status post Lokelma
-Potassium is 4.9 from 5.3. pending today
HFpEF, chronic
-Would not give diuretic given active nausea/vomiting/diarrhea
-He denies shortness of breath and orthopnea
-Trend daily weight, I/O, and BMP
Mitral regurgitation, at least moderate in 2019, update echocardiogram
Coronary artery disease
-Prior PCI 2001, on ASA
-Chest pain-free
Hypertension
NIDDM, per primary
Dyslipidemia, on atorvastatin 40 mg
COPD, no acute exacerbation
Longstanding tobacco abuse, cessation recommended
Physical Exam
Vital Signs/Labs
Vital Signs
Temp Pulse Resp BP Pulse Ox
98.6 F 58 16 122/53 98
04/15/24 08:02 04/15/24 07:59 04/15/24 08:02 04/15/24 06:38 04/15/24 08:02
04/14/24 04/15/24 04/16/24
06:59 06:59 06:59
Actual Weight 79 kg 77.4 kg
04/14/24 01:38
APTT 140.3 Sec (23.4-35.0) H 04/15/24 03:33
TSH 2.57 uIU/ml (0.47-4.68) 04/14/24 05:57
04/14/24
05:57
Gyz-S-Dnbwxctcnok Pept 9650
LAB Results
04/14/24
01:42
Troponin I 0.026
Physical Exam
Constitutional: No acute distress and Comfortable
EENT: Anicteric and Moist mucous membranes
Cardiovascular: Rhythm/rate is irregular, Pedal edema present, JVD present and Systolic murmur present
Respiratory: Respiratory effort normal and Crackles Present
GI: Soft, Non tender and Normal bowel sounds
Neuro/Psych: Alert, Oriented and AO x 3
Data Reviewed
-
Date of Service: April 15, 2024
EKG: Tracing Personally Visualized and interpreted
Echo: Report Reviewed by me
Labs: Labs Reviewed by me
Old Records: Reviewed
[2024-04-15] MEDS: LASIX 80 MG IV (09:36)
--- NOTE | 2024-04-15 12:33 | W.PN.NEPH.PH ---
Today's Communication / Plan
-
follow pending labs, prn samsca
Assessment/Plan
-
IMP:
Syncope
Hyponatremia
Afib
mild hyperkalemia
non gap met acidosis
Acute on chr CHF diastolic,
severe pulm HTN, severe TR on echo
MVP with severe MR
n/v/d EVP STRATEGY
DM II
COPD
HLD
Plan:
A/w syncope, h/o n/v /d
afib with bradycardia, plan PPM on 04/16
hyponatremia-suspect hypervolemia, elevated BNP
echo results noted, severe pulm HTN, severe TR, severe MR
U osmo 404, u na low at 8 suggest decrease in effective art flow-cardiorenal
TSH and cortisol were ok
cont diuretics per cards
KIYA-chr microhematuria, Alb+ , check U PCR
cr increasing suspect cardiorenal, follow bladder scan, PVR 216cc
await labs today, prn samsca
maintain FR 40 ounces/day
BP are stable on Amlodipine
mild hyperkalemia-improved, d/c Lokelma
monitor met acidosis-improving
follow h/h
d/w pt
-
-
Date of Service: April 15, 2024
CC / HPI / ROS
-
Chief Complaint:
hyponatremia, KIYA
History of Present Illness:
sodium no change last evening at 124, today labs pending
BP stable, s/p lasix this am
cr up at 1.5, non oliguric with out ivy
wt no sig change
Review of Systems:
feels well, still jeff
no cp. no dizziness
Labs
-
Labs:
WBC 6.7 10^3/uL (4.8-10.8) 04/14/24 01:38
RBC 3.13 10^6/uL (4.70-6.10) L 04/14/24 01:38
Hgb 9.9 g/dL (13.0-18.0) L 04/14/24 01:38
Hct 29.7 % (39.0-52.0) L 04/14/24 01:38
Plt Count 191 10^3/uL (130-400) 04/14/24 01:38
eGFR 49.77 04/14/24 17:45
Cyv-Z-Fmkyjtcefgr Pept 9650 pg/ml 04/14/24 05:57
Albumin 4.1 g/dl (3.5-5.0) 04/14/24 01:38
Physical Exam
-
Vital Signs:
Vital Signs
Temp Pulse Resp BP Pulse Ox
98.4 F 58 16 122/53 97
04/15/24 12:14 04/15/24 07:59 04/15/24 12:14 04/15/24 06:38 04/15/24 12:14
Cardiovascular:: Irregular rate and rhythm
Respiratory:: Bilateral: CTA
Lung Excursion:: Normal
Abdomen:: Nontender and Soft
Extremity Edema:: None: Bilateral:
Ivy Catheter: No
[2024-04-15 12:34] LABS: APTT 75.6 Sec (23.4-35.0)
[2024-04-15 12:41] LABS: Glucose - Point of Care 247 mg/dl (70-99)
[2024-04-15 12:51] LABS: Blood Urea Nitrogen 25 mg/dl (9-20); Calcium 8.6 mg/dl (8.4-10.2); Carbon Dioxide 26 mmol/L (22-30); Chloride 96 mmol/L (98-107); Estimated Creatinine Clearance 47 ml/min; Glucose 215 mg/dl (70-99); Potassium 4.1 mmol/L (3.5-5.1); Sodium 127 mmol/L (135-145); eGFR 46.06
[2024-04-15 13:32] LABS: Protein/creatinine Ratio 0.6; Urine Protein 10 mg/dl
[2024-04-15 16:51] LABS: Glucose - Point of Care 149 mg/dl (70-99)
--- NOTE | 2024-04-15 17:28 | PTCARENOTE ---
Patient eating and drinking great. A-Fib 30-60's with pauses denies lightheadedness, VSS. Complete bed bath completed. No nausea or stools past 2 days. Using urinal at bedside. Plan of care reviewed with patient he verbalized understanding
[2024-04-15 18:24] LABS: APTT 60.8 Sec (23.4-35.0)
[2024-04-15 20:47] LABS: Glucose - Point of Care 269 mg/dl (70-99)
[2024-04-15] MEDS: LIPITOR 40 MG PO (21:16)
[2024-04-15] MEDS: MELATONIN 5 MG PO (21:16)
[2024-04-16] VITALS (9 sets, daily range): BP systolic 118–146; BP diastolic 66–77; BMI 22.4
[2024-04-16 01:16] LABS: APTT 96.2 Sec (23.4-35.0)
[2024-04-16 06:39] LABS: Hematocrit 25.6 % (39.0-52.0); Hemoglobin 8.6 g/dL (13.0-18.0); Mean Corp Hgb Conc. 33.6 g/dL (33.0-37.0); Mean Corpuscular Hgb 31.9 pg (27.0-31.0); Mean Corpuscular Volume 94.8 fL (80.0-94.0); Mean Platelet Volume 9.9 fL (7.4-10.4); Platelet Count 138 10^3/uL (130-400); Red Cell Dist. Width 14.2 % (11.5-14.5); White Blood Cell Count 4.4 10^3/uL (4.8-10.8)
[2024-04-16 07:15] LABS: Blood Urea Nitrogen 25 mg/dl (9-20); Calcium 8.6 mg/dl (8.4-10.2); Carbon Dioxide 27 mmol/L (22-30); Chloride 96 mmol/L (98-107); Estimated Creatinine Clearance 58 ml/min; Glucose 132 mg/dl (70-99); Potassium 4.2 mmol/L (3.5-5.1); Sodium 129 mmol/L (135-145)
[2024-04-16] MEDS: SYMBICORT 160/4.5 MCG INHALER 2 PUFF INH ×2 (07:41→19:40)
--- NOTE | 2024-04-16 07:55 | PTCARENOTE ---
Assumed care of pt from prev nsg shift, AAOx3 w/no c/o CP or SOB. Pt's BP stable at 144/72. Pt's HR is low 40's-50's w/freq pauses. Pt is Afib on telemetry monitoring. MD's are aware of pauses, pt for PPM placement this AM. Pt NPO since midnight.
Pt's IV Heparin drip stopped per MD order. This RN discussed plan of care w/pt. Pt verbalized his understanding. Pt w/call marrero within reach & no addtl needs at this time.
--- NOTE | 2024-04-16 07:59 | W.PN.HOSP.TC ---
Today's Communication/Plan
-
PPM today
Assessment / Plan
Assessment / Plan
Gen: NAD, AAOx3.
Eyes: EOMI, PERRLA, no scleral icterus.
Neck: supple.
CV: remains jeff, irreg/irreg, +S1/S2, no m/r/g.
Resp: CTAB anteriorly, no rales, wheezes, or rhonchi.
Abd: +BS, soft, NT, ND
Skin: No rashes. No LE edema
Neuro: CN 2-12 intact, non-focal.
Psych: Normal mood and affect.
Echo: EF 70-75%. No RWMA. Enlarged RV with moderately reduced RV systolic fxn. Mod dilated LA/RA. Severe MR/TR, PASP 90-95mmHg. IVC is dilated and does not collapse. Compared to prior study of 11/13/2018, significantly progressive mitral
regurgitation and tricuspid regurgitation are now noted. PASP has significantly increased (previously [address] brain: No acute intracranial abnormalities. Moderate diffuse cortical atrophy with moderate nonspecific white matter changes as described above.
CT C-spine: No acute abnormalities. Multilevel cervical degenerative disc disease.
Syncope:
-likely due to bradycardia and possibly exacerbated by a vasovagal episode with diarrhea
-ECG (read by me): afib @ 58, L-axis, no acute ST/TW changes
-also noted to have junctional rhythm on admission
-cardiology following
-for PPM 04/16/24
Acute on chronic HFpEF:
-no echo findings as above
-s/p Lasix 40mg IV On 04/14/24, Lasix 80mg IV this AM
-daily wts, I/Os
Hyponatremia:
-renal following
-cont FR
-TSH/cortisol normal
Persistent afib:
-h/o medical noncompliance
-cont heparin gtt
-for PPM today with bradycardia
Other problems:
Hyperkalemia: resolved with Lokelma
DM2: SSI/accuchecks
KIYA: due to CRS, improving with diuresis
COPD (due to tobacco abuse disorder), not in acute exac: cont Symbicort
CAD: h/o PCI 2001, cont ASA/statin
DNR/heparin gtt
Total time spent on today's encounter was 51 minutes which included time spent in counseling the patient/family regarding diagnosis and treatment plan as listed above, goals of care, and symptom management. Case was discussed with nursing staff,
specialists, and care coordinators/case management. All labs and imaging personally reviewed by me. Remainder the time spent in detailed review of previous records, lab data, imaging, and other medical provider documentation.
Anticipated Discharge: Within 24 hours
Subjective/Interval History
-
Date of Service: April 16, 2024
Denies CP/SOB.
Objective Data
-
Labs:
Laboratory Results
04/16/24 04/16/24 04/16/24
00:43 06:09 13:00
WBC 4.4 L
Hgb 8.6 L
Hct 25.6 L
Plt Count 138 D
APTT 96.2 H 123.0 H Cancelled
Sodium 129 L
Potassium 4.2
Chloride 96 L
Carbon Dioxide 27
BUN 25 H
Creatinine 1.3
Glucose 132 H
Calcium 8.6
Vital Signs:
Vital Signs
Temp Pulse Resp BP Pulse Ox
98.3 F 60 16 136/71 90
04/16/24 04:39 04/16/24 07:45 04/16/24 07:45 04/16/24 04:41 04/16/24 04:41
I&O
04/15/24 04/16/24 04/17/24
06:59 06:59 06:59
Intake Total 1130 / 1130 1097 / 1097
Output Total 960 / 960 1375 / 1375
Balance 170 / 170 -278 / -278
[2024-04-16 08:44] LABS: Glucose - Point of Care 140 mg/dl (70-99)
[2024-04-16] MEDS: NORVASC 5 MG PO (09:40)
[2024-04-16] MEDS: ASPIR LOW (ENTERIC COATED) 81 MG PO (09:41)
--- NOTE | 2024-04-16 10:07 | CM ---
Chart reviewed. Patient is waiting for PPM. Patient is independent of ADLS, lives with his brother and MARQUEZ in a [address], 2 [address], 0 DME. Plan is for the patient to return home. CM to follow
--- NOTE | 2024-04-16 10:55 | PTCARENOTE ---
Report given to Edgar in the EP lab & pt taken to EP lab in his bed a short time later.
[2024-04-16 11:48] LABS: Glycohemoglobin (HgbA1c) 7.4 % (4.0-5.6)
--- NOTE | 2024-04-16 12:22 | W.PN.CD ---
Today's Communication / Plan
-
- PPM today
Impression / Plan
-
IMPRESSION/PLAN: 68M with persistent atrial fibrillation (on sotalol), coronary artery disease (PCI 2001), HFpEF, mitral regurgitation, dyslipidemia, type 2 diabetes mellitus, and longstanding tobacco abuse who presented to the emergency department
with a chief complaint of syncope.
Primary plastic printer: Dr. Garcia
Syncope
-Vasovagal versus cardiac
-With slower rates, possible conversion pause with Sotalol on board
-Severe bradycardia noted - 30s
-Echocardiogram 04/14/24: LVEF 75% moderately dilated atria with severe MR and PA pressure of 90
-Rates slow - needs rate / rhythm control
-Sotalol is ineffective and remains in AF but likely will help with PPM in place and increase the dose to regular dose of 80 mg BID.
-PPM today
CHF
Severe MR and TR
Significantly elevated PA pressure and dilated and non- collapsing IVC
Diuresis with IV Lasix
Persistent atrial fibrillation
-Slow rates, hold AV codie agents, - plan for PPM then can increase Sotalol
-Oral Anticoagulation: None, he was on Xarelto in the past, it was not discontinued due to abnormal bleeding, start heparin gtt
-[id number]: score 5 (Heart failure, HTN, Diabetes Mellitus, Vascular disease, age 65-74)
KIYA
Cr has started to come down now.
could be due to bradycardia and lowere cardiac output.
-Plan for PPM will help with cardiac output
Diarrhea with nausea and vomiting
Hyponatremia
Hyperkalemia
-Status post Lokelma
-Potassium is 4.9 from 5.3. pending today
HFpEF, chronic
-Would not give diuretic given active nausea/vomiting/diarrhea
-He denies shortness of breath and orthopnea
-Trend daily weight, I/O, and BMP
Mitral regurgitation, at least moderate in 2019, update echocardiogram
Coronary artery disease
-Prior PCI 2001, on ASA
-Chest pain-free
Hypertension
NIDDM, per primary
Dyslipidemia, on atorvastatin 40 mg
COPD, no acute exacerbation
Longstanding tobacco abuse, cessation recommended
Physical Exam
Vital Signs/Labs
Vital Signs
Temp Pulse Resp BP Pulse Ox
98.3 F 72 18 144/72 95
04/16/24 08:15 04/16/24 11:45 04/16/24 08:15 04/16/24 08:18 04/16/24 08:15
04/15/24 04/16/24 04/17/24
06:59 06:59 06:59
Actual Weight 77.4 kg 76.9 kg
04/16/24 06:09
04/16/24 06:09
APTT Cancelled 04/16/24 13:00
TSH 2.57 uIU/ml (0.47-4.68) 04/14/24 05:57
04/14/24
05:57
Pin-H-Vgeortlewgs Pept 9650
LAB Results
04/14/24
01:42
Troponin I 0.026
Physical Exam
Constitutional: No acute distress and Comfortable
EENT: Anicteric and Moist mucous membranes
Cardiovascular: Rhythm/rate is irregular, JVD present, Systolic murmur present and Diastolic murmur present
Respiratory: Respiratory effort normal and Crackles Present
GI: Soft, Non tender and Normal bowel sounds
Neuro/Psych: Alert, Oriented and AO x 3
Other: Cardiac Device Site
Data Reviewed
-
Date of Service: April 16, 2024
Medical Decision Making: Reviewed Test Results, Independent Historian Assessment, Test Interpretation and Review of Case with other Provider
EKG: Tracing Personally Visualized and interpreted
Echo: Report Reviewed by me
Labs: Labs Reviewed by me
Old Records: Reviewed
--- NOTE | 2024-04-16 12:24 | ITS.CL.PACE ---
Material Cutter - Pacemaker Implant
Pacemaker Implant
Procedure Report:
Dual Chamber Pacemaker Placement:
Mr. Childs is a very pleasant 68 yrs old gentleman who presented with Tachy Bin syndrome and persistent atrial fibrillation with frequent symptomatic bradycardia and syncope and is recommended for PPM placement.�
Indications: Tachy Bin syndrome
Date of the Procedure: 04/16/2024
Pre-Operative Diagnosis: Tachy Bin syndrome
Post-Operative Diagnosis: Tachy Bin syndrome
Procedure Performed: DUAL CHAMBER PACEMAKER IMPLANTATION
Performing Physician:
Amy Vital MD
Assistants:
EP staff
Anesthesia:
See anethesia report
Pre-operative antibiotics:
Ancef
Detailed Description of the Procedure:
The patient was identified using hospital identification and informed consent obtained for the procedure. The risks were explained including, but not limited to: Bleeding, infection, arrhythmia, stroke, vascular/cardiac/lung puncture, surgery,
pacemaker dependency/device malfunction. All questions were answered.
The patient was brought to the electrophysiology laboratory in stable condition in fasting state. Continuous electrocardiographic and hemodynamic monitoring was initiated.
The initial rhythm was atrial fibrillation.
A surgical pause and time out was performed immediately prior to the procedure with review of her medical history, recent labs, allergies and medications with site of procedure identified and consent noted in the chart. Antibiotics pre operatively
given. All team members concurred.
The procedure site was meticulously prepared with surgical scrub and allowed to dry with no pooling. Sterile draping was applied to cover the procedure site. The image intensifier was draped with sterile bag and positioned over the patient.
The left infraclavicular region was prepped and draped in the usual sterile fashion. Local anesthesia was administered subcutaneously using 1% lidocaine / Bupivacaine. The left cephalic vein cutdown was performed with an incision at the
delto-pectoral groove, and vascular sheaths were introduced for lead access. These were advanced into the right ventricle and the right atrium.
There were extreme tortuosity noted in the subclavian vein and long sheaths were needed. The cardiac chambers were rotated as well.
The right ventricular lead was secured in position with an active fixation technique at the apical septal location.
The RA lead was attached in the right atrial appendage with active fixation.
There was excellent sensing, pacing, and impedance from the leads, with no diaphragmatic stimulation at 10 V output.�Bovie cautery, antibiotics, and fluoroscopy were used.
The sheaths were withdrawn, and the thresholds remained acceptable. The leads were secured in position at the venous entry site with 2-0 Ethibond suture. A pocket was fashioned contiguous to the incision. The electrode terminals were connected to
the pulse generator, which was placed into the pocket.
The device was anchored to the underlying fascia using 2-0 Ethibond suture.
The wound was irrigated thoroughly with antibiotic solution.
The wound was closed in 3 layers using 2-0 V loc then two layers of 4-0 V loc sutures to the dermis. Steri-strips were applied externally and covered with Aquacel bandage.
Procedure End:
The procedure was tolerated well.
Estimated Blood loss:
10 cc
Specimens Removed:
No cultures and no specimens were obtained. No intraoperative pathology was identified.
Fluoro time:
1.8 min / 3.93mGy
Urine output:
None
Packs / Drains/ Tubes:
None
Instrument / Sponge Count Correct:
Yes
Complications of the Procedure:
None
Condition of Patient at Time of Transfer:
Hemodynamically stable with no neurological or vascular compromise.
Device information:�
Generator: [employer]; Model: W1DR01; Serial # [id number]�
Atrial Lead:
[employer]; Model: 5076-52; Serial # [id number]
Measured data in the right atrium was sensing of 0.5 mV of AF waves, impedance of 817 ohms and threshold not tested due to AF.
RV Lead:
[employer]; Model: 5076-58; Serial # [id number]
Measured data in the RV lead was sensing of 10.8mV, impedance of 703 ohms and threshold of 0.5 V at 0.4ms�
Bin parameter settings were AAI < = > DDD 60-130 bpm. �
����������� Now mode switched to VVI - 60
�����������
Output parameters:
����������������������� Amplitude (V)������������� Pulse Width (ms)������� Sensitivity (mV)
����������� RA: ���� - ��������������������� ����������� -���������������������� ����������� 0.15
����������� RV:����� 3.5������������������ ����������� 0.4������������������ ����������� 0.9
Summary:
Successful implantation of MRI compatible dual chamber [employer] pacemaker
Results/Recommendations:
-Please follow up CXR�
1. Please provide patient with adequate pain control�
Instructions to be given to patient:�
- Please follow up with [facility] at [address] [place] [address] ([phone]) to get your wound checked within 14 days of your discharge.
- Do not wet incision site until after it is evaluated at cardiology clinic. No soaking or bath until then. Showers or Sponge baths are OK.�Dab dry the area after a shower.
- Do not lift left elbow above shoulder, particularly with sudden jerking movements, for 1 month�
- Do not lift anything weighing more than 10 pounds with the left arm for 1 month�
- If you notice any fevers, shortness of breath, lightheadedness, chest pain, or worsening swelling in the wound site, please contact the arrhythmia clinic, contact your staple processing machine operator, or present to the hospital for evaluation.�
Amy Vital MD
Electrophysiology
[2024-04-16 12:44] LABS: Glucose - Point of Care 127 mg/dl (70-99)
[2024-04-16] MEDS: NOVOLOG FLEXPEN-MODERATE RESISTANCE SC ×2 (12:47→18:42)
[2024-04-16] MEDS: BETAPACE 80 MG PO (13:39)
[2024-04-16 14:24] LABS: Glucose - Point of Care 120 mg/dl (70-99)
--- NOTE | 2024-04-16 14:36 | W.PN.NEPH.PH ---
Today's Communication / Plan
-
Continue fluid restriction
Assessment/Plan
-
IMP:
Syncope
Hyponatremia/KIYA
Afib
mild hyperkalemia
non gap met acidosis
Acute on chr CHF diastolic,
severe pulm HTN, severe TR on echo
MVP with severe MR
n/v/d POULTRY BONER
DM II
COPD
HLD
Plan:
A/w syncope, h/o n/v /d
afib with bradycardia, status post 04/16
hyponatremia-suspect hypervolemia, elevated BNP
echo results noted, severe pulm HTN, severe TR, severe MR
U osmo 404, u na low at 8 suggest decrease in effective art flow-cardiorenal
TSH and cortisol were ok
cont diuretics per cards
KIYA-chr microhematuria, Alb+ , check U PCR= 0.6
maintain FR 40 ounces/day
mild hyperkalemia-improved, d/c Lokelma
Creatinine improved down to 1.3/peaked at 1.6
Initial sodium 124 on consult
Current sodium stable at 129
Currently not on diuretics
-
-
Date of Service: April 16, 2024
CC / HPI / ROS
-
Chief Complaint:
hyponatremia, KIYA
History of Present Illness:
Hyponatremia improved from 1 24-129 stable
Creatinine normalized to baseline 1.2-1.3
Review of Systems:
No chest pain shortness of breath nausea or vomiting
Labs
-
Labs:
WBC 4.4 10^3/uL (4.8-10.8) L 04/16/24 06:09
RBC 2.70 10^6/uL (4.70-6.10) L 04/16/24 06:09
Hgb 8.6 g/dL (13.0-18.0) L 04/16/24 06:09
Hct 25.6 % (39.0-52.0) L 04/16/24 06:09
Plt Count 138 10^3/uL (130-400) D 04/16/24 06:09
Sodium 129 mmol/L (135-145) L 04/16/24 06:09
Potassium 4.2 mmol/L (3.5-5.1) 04/16/24 06:09
Chloride 96 mmol/L (98-107) L 04/16/24 06:09
Carbon Dioxide 27 mmol/L (22-30) 04/16/24 06:09
BUN 25 mg/dl (9-20) H 04/16/24 06:09
Creatinine 1.3 mg/dL (0.7-1.3) 04/16/24 06:09
eGFR 59.10 04/16/24 06:09
Glucose 132 mg/dl (70-99) H 04/16/24 06:09
Calcium 8.6 mg/dl (8.4-10.2) 04/16/24 06:09
Sxu-Z-Tkimkchrolj Pept 9650 pg/ml 04/14/24 05:57
Albumin 4.1 g/dl (3.5-5.0) 04/14/24 01:38
Physical Exam
-
Vital Signs:
Vital Signs
Temp Pulse Resp BP Pulse Ox
97.7 F 67 16 146/75 99
04/16/24 12:54 04/16/24 13:15 04/16/24 12:54 04/16/24 12:36 04/16/24 13:00
Cardiovascular:: Irregular rate and rhythm
Respiratory:: Bilateral: CTA
Lung Excursion:: Normal
Abdomen:: Nontender and Soft
Extremity Edema:: None: Bilateral:
Wolf Catheter: No
[2024-04-16 18:10] LABS: Glucose - Point of Care 197 mg/dl (70-99)
[2024-04-16] MEDS: ANCEF 5 IV (18:38)
[2024-04-16] MEDS: FLUSH (NSS) 2 FLUSH IV (18:39)
[2024-04-16 21:20] LABS: Glucose - Point of Care 260 mg/dl (70-99)
[2024-04-16] MEDS: LIPITOR 40 MG PO (23:23)
[2024-04-17] VITALS (9 sets, daily range): BP systolic 126–143; BP diastolic 61–79; PULSE 60; BMI 22.4
--- NOTE | 2024-04-17 | PTCARENOTE ---
Assumed care of pt at change of shift. Vpaced on tele with HR 60s. L chest wall pressure dressing c/d/i with no complications noted. L arm immobilizer in place. Pt denies CP and SOB. Ambulates with x1 assist. Can make needs known. Call marrero
within reach.
[2024-04-17] MEDS: BETAPACE 80 MG PO ×2 (00:56→13:15)
[2024-04-17] MEDS: ANCEF 5 IV (01:53)
[2024-04-17] MEDS: MELATONIN 5 MG PO (01:53)
[2024-04-17 03:34] LABS: Hematocrit 26.6 % (39.0-52.0); Hemoglobin 9.1 g/dL (13.0-18.0); Mean Corp Hgb Conc. 34.2 g/dL (33.0-37.0); Mean Corpuscular Hgb 31.9 pg (27.0-31.0); Mean Corpuscular Volume 93.3 fL (80.0-94.0); Mean Platelet Volume 10.4 fL (7.4-10.4); Platelet Count 131 10^3/uL (130-400); Red Blood Cell Count 2.85 10^6/uL (4.70-6.10); Red Cell Dist. Width 14.3 % (11.5-14.5); White Blood Cell Count 5.7 10^3/uL (4.8-10.8)
[2024-04-17 04:00] LABS: Blood Urea Nitrogen 21 mg/dl (9-20); Calcium 9.3 mg/dl (8.4-10.2); Carbon Dioxide 26 mmol/L (22-30); Chloride 96 mmol/L (98-107); Estimated Creatinine Clearance 62 ml/min; Glucose 195 mg/dl (70-99); Magnesium 1.7 mg/dl (1.6-2.3); Potassium 4.8 mmol/L (3.5-5.1); Sodium 130 mmol/L (135-145); eGFR > 60.00
--- NOTE | 2024-04-17 06:22 | PTCARENOTE ---
Pt received dose #2 of Sotalol at 0100. QTc 521 on EKG at 0300. Dr. Car notified, instructed to hold next dose until cardiology sees the pt today.
[2024-04-17] MEDS: SYMBICORT 160/4.5 MCG INHALER 2 PUFF INH (07:30)
[2024-04-17 07:46] LABS: Glucose - Point of Care 204 mg/dl (70-99)
[2024-04-17] MEDS: NORVASC 5 MG PO (07:49)
[2024-04-17] MEDS: NOVOLOG FLEXPEN-MODERATE RESISTANCE 3 UNITS SC (07:49)
[2024-04-17] MEDS: ASPIR LOW (ENTERIC COATED) 81 MG PO (07:49)
--- NOTE | 2024-04-17 08:00 | PTCARENOTE ---
Assumed care of pt from prev nsg shift, AAOx3 w/no c/o CP or SOB. Pt's VS stable w/HR 60 & BP 143/79 this AM. Pt is now V paced on telemetry monitoring. Pt w/LUE still in immobilizer post new PPM placement. This RN discussed plan of care & LUE
restrictions again w/pt. Pt verbalized his understanding. Pt w/call marrero within reach & no addtl needs at this time.
--- NOTE | 2024-04-17 10:26 | W.PN.CD ---
Addendum entered and electronically signed by Samm Archer MD 04/17/24 11:33:
-
We have Farxiga and not Jardiance on formulary here and both are same cost for pt as outpatient. Will start Farxiga.
Addendum entered and electronically signed by Samm Archer MD 04/17/24 11:32:
-
Case management confirmed with pt that $47/month for Eliquis and same cost for the SGLT2-I is acceptable. I will add Jardiance.
-
Original Note:
Today's Communication / Plan
-
Stop ASA
Start Eliquis
Diuresis => Lasix 40 mg PO BID
Plan cardioversion 3-4 weeks
Recheck Mitral Regurgitation 1-2 months after cardioversion
Add SGLT-I if co-pay ok
Impression / Plan
-
Background: 68M with persistent atrial fibrillation (on sotalol), coronary artery disease (PCI 2001), HFpEF, mitral regurgitation, dyslipidemia, type 2 diabetes mellitus, and longstanding tobacco abuse who presented to the emergency department with
a chief complaint of syncope.
Primary prep cook: Dr. Garcia
Syncope attributed to bradycardia
- Pacemaker placed on 04/16/2024
- CXR, tele, EKG all fine for pacer/lead function
Persistent AFib
- Sotalol increased, QTc OK as QRS is now paced, still in AFib
- Anticipate cardioversion in 3 weeks
- [id number]: score 5 (Heart failure, HTN, Diabetes Mellitus, Vascular disease, age 65-74)
- Start Eliquis
- Monitor for bleeding
Acute on chronic HF, pBNP 9659
- MR in past just moderate
- Diuresis, Lasix 40 mg BID
- Reevaluate MR after diuresis and after sinus rhythm restored
- May need to address MR with MV surgery or Clip
- Add SGLT2-I if co-pay OK
- No MRA for now as had recent mild elevation of k+, consider later
MV disease
- MVP, MR now severe, hope it improves with sinus and diuresis
- Reevaluate MR after diuresis and after sinus rhythm restored
- May need to address MR with MV surgery or Clip
Renal function
- Cr 1.2 with est GFR 62, 04/17/2024
Coronary artery disease
- Prior PCI 2001 => STOP ASA as we are starting Eliquis
Hypertension
NIDDM, per primary
Dyslipidemia, on atorvastatin 40 mg
COPD, no acute exacerbation
Longstanding tobacco abuse, cessation recommended
Subjective:
Feels OK
Physical Exam
Vital Signs/Labs
Vital Signs
Temp Pulse Resp BP Pulse Ox
97.9 F 60 18 143/79 96
04/17/24 07:01 04/17/24 08:00 04/17/24 07:31 04/17/24 06:59 04/17/24 07:01
04/16/24 04/17/24 04/18/24
06:59 06:59 06:59
Actual Weight 76.9 kg 77.1 kg
04/17/24 02:57
04/17/24 02:57
APTT Cancelled 04/16/24 13:00
Magnesium 1.7 mg/dl (1.6-2.3) 04/17/24 02:57
TSH 2.57 uIU/ml (0.47-4.68) 04/14/24 05:57
04/14/24
05:57
Fcb-H-Qrfsztqilkp Pept 9650
Physical Exam
Constitutional: No acute distress
Cardiovascular: Systolic murmur present and Rub absent
Respiratory: Respiratory effort normal and Crackles Absent
GI: Soft and Distention absent
Neuro/Psych: Alert and Oriented
Data Reviewed
-
Date of Service: April 17, 2024
--- NOTE | 2024-04-17 10:41 | W.PN.NEPH.PH ---
Today's Communication / Plan
-
follow BMP
Assessment/Plan
-
IMP:
Syncope
Hyponatremia/KIYA
Afib
mild hyperkalemia
non gap met acidosis
Acute on chr CHF diastolic,
severe pulm HTN, severe TR on echo
MVP with severe MR
n/v/d CURRENCY EXAMINER
DM II
COPD
HLD
Plan:
follow BMP
maintain FR
lasix per cardiology, he says he took it PRN ~2-3x/week
-
-
Date of Service: April 17, 2024
CC / HPI / ROS
-
Chief Complaint:
hyponatremia, KIYA
History of Present Illness:
Hyponatremia stable 130
Creatinine normalized to baseline 1.2
Hgb stable low
BP stable
Review of Systems:
No chest pain shortness of breath nausea or vomiting
Labs
-
Labs:
WBC 5.7 10^3/uL (4.8-10.8) 04/17/24 02:57
RBC 2.85 10^6/uL (4.70-6.10) L 04/17/24 02:57
Hgb 9.1 g/dL (13.0-18.0) L 04/17/24 02:57
Hct 26.6 % (39.0-52.0) L 04/17/24 02:57
Plt Count 131 10^3/uL (130-400) 04/17/24 02:57
Sodium 130 mmol/L (135-145) L 04/17/24 02:57
Potassium 4.8 mmol/L (3.5-5.1) 04/17/24 02:57
Chloride 96 mmol/L (98-107) L 04/17/24 02:57
Carbon Dioxide 26 mmol/L (22-30) 12/27/24 02:57
BUN 21 mg/dl (9-20) H 04/17/24 02:57
Creatinine 1.2 mg/dL (0.7-1.3) 04/17/24 02:57
eGFR > 60.00 04/17/24 02:57
Glucose 195 mg/dl (70-99) H 04/17/24 02:57
Calcium 9.3 mg/dl (8.4-10.2) 04/17/24 02:57
Uen-G-Ojzgtfyvzzp Pept 9650 pg/ml 04/14/24 05:57
Albumin 4.1 g/dl (3.5-5.0) 04/14/24 01:38
Physical Exam
-
Vital Signs:
Vital Signs
Temp Pulse Resp BP Pulse Ox
97.9 F 60 18 143/79 96
04/17/24 07:01 04/17/24 08:00 04/17/24 07:31 04/17/24 06:59 04/17/24 07:01
Cardiovascular:: Regular rate and rhythm
Respiratory:: Bilateral: Coarse
Lung Excursion:: Normal
Abdomen:: Nontender
Bowel Sounds:: Normal
Extremity Edema:: None: Bilateral:
--- NOTE | 2024-04-17 11:13 | W.PN.HOSP.TC ---
Today's Communication/Plan
-
see bold
Assessment / Plan
Assessment / Plan
Gen: NAD, AAOx3.
Eyes: EOMI, PERRLA, no scleral icterus.
Neck: supple.
CV: RRR, +S1/S2, no m/r/g.
Resp: remains CTAB anteriorly, no rales, wheezes, or rhonchi.
Abd: +BS, soft, NT, ND
Skin: No rashes. No LE edema
Neuro: remains CN 2-12 intact, non-focal.
Psych: Normal mood and affect.
Echo: EF 70-75%. No RWMA. Enlarged RV with moderately reduced RV systolic fxn. Mod dilated LA/RA. Severe MR/TR, PASP 90-95mmHg. IVC is dilated and does not collapse. Compared to prior study of 11/13/2018, significantly progressive mitral
regurgitation and tricuspid regurgitation are now noted. PASP has significantly increased (previously [address] brain: No acute intracranial abnormalities. Moderate diffuse cortical atrophy with moderate nonspecific white matter changes as described above.
CT C-spine: No acute abnormalities. Multilevel cervical degenerative disc disease.
Syncope:
-likely due to bradycardia and possibly exacerbated by a vasovagal episode with diarrhea
-ECG (read by me): afib @ 58, L-axis, no acute ST/TW changes
-also noted to have junctional rhythm on admission
-cardiology following
-s/p PPM 04/16/24
Acute on chronic HFpEF:
-no echo findings as above
-s/p multiple IV Lasix doses, now transitioned to Lasix 40mg PO BID
-daily wts, I/Os
Hyponatremia:
-renal following
-cont FR
-TSH/cortisol normal
Persistent afib:
-h/o medical noncompliance
-was on heparin gtt, transition to Eliquis tonight
-s/p PPM for bradycardia on 04/16/24
-cont Sotalol
Other problems:
Essential HTN: cont Norvasc/Sotalol
Hyperkalemia: resolved with Lokelma
Hyperlipidemia: Continue statin
DM2: SSI/accuchecks
KIYA: due to CRS, improving with diuresis
COPD (due to tobacco abuse disorder), not in acute exac: cont Symbicort
CAD: h/o PCI 2001, cont statin. Stop ASA upon starting Eliquis
DNR/starting Eliquis tonight
Total time spent on today's encounter was 50 minutes which included time spent in counseling the patient/family regarding diagnosis and treatment plan as listed above, goals of care, and symptom management. Case was discussed with nursing staff,
specialists, and care coordinators/case management. All labs and imaging personally reviewed by me. Remainder the time spent in detailed review of previous records, lab data, imaging, and other medical provider documentation.
Anticipated Discharge: Within 24 hours
Subjective/Interval History
-
Date of Service: April 17, 2024
Denies CP/SOB.
Objective Data
-
Labs:
Laboratory Results
04/17/24
02:57
WBC 5.7
Hgb 9.1 L
Hct 26.6 L
Plt Count 131
Sodium 130 L
Potassium 4.8
Chloride 96 L
Carbon Dioxide 26
BUN 21 H
Creatinine 1.2
Glucose 195 H
Calcium 9.3
Vital Signs:
Vital Signs
Temp Pulse Resp BP Pulse Ox
97.9 F 60 18 143/79 96
04/17/24 07:01 04/17/24 08:00 04/17/24 07:31 04/17/24 06:59 04/17/24 07:01
I&O
04/16/24 04/17/24 04/18/24
06:59 06:59 06:59
Intake Total 1097 / 1097 60 / 60
Output Total 1375 / 1375 900 / 900
Balance -278 / -278 -840 / -840
--- NOTE | 2024-04-17 11:17 | CM ---
Priced Susan Torres and Shannen thru [facility]- [phone].
Estimated cost for all medications are: $47/mo.
I can provide a free 30 d coupon for any medication that he is prescribed.
--- NOTE | 2024-04-17 11:50 | CM ---
CM following for DC planning needs.
Reviewed initial assessment. Pt. resides in a private, 2 STH w/ brother and sister in law. Functionally, patient is indep. w/ ADLs and mobility without the use of any assisted device.
Met w/ patient at bedside. Reviewed estimated cost of Susan, Shannen and Eliquis. Pt. is agreeable to this cost. I will provide free 30 d coupon for whichever medication he is prescribed at DC.
Pt. has transport home.
He identifies no other anticipated DC needs.
Plan is for home, no needs.
[2024-04-17 12:52] LABS: Glucose - Point of Care 213 mg/dl (70-99)
[2024-04-17] MEDS: NOVOLOG FLEXPEN-MODERATE RESISTANCE SC (13:15)
--- NOTE | 2024-04-17 13:29 | W.PN.UPDATE ---
Update Note
Progress Note Update
Patient has stated to nursing that he is unwilling to stay in the hospital any longer and will leave AGAINST MEDICAL ADVICE. All of the patient's prescriptions have been sent to his pharmacy. In my medical opinion the patient is not medically
stable or cleared for discharge today.
--- NOTE | 2024-04-17 13:40 | PTCARENOTE ---
1221 This RN advised Hospitalist, Dr Blankenship & Log Chipper Operator, Dr Archer that patient is very upset at this time. Pt states he's been told every day that he would be here 'just one more day' & that he was told by 2 Drs today that he 'might get out of here
today, but now because of medication changes he has to stay'. Pt states he's 'changed meds plenty of times & never had to stay in the hospital'. This RN attempted to explain reason for needing to stay, attempting to calm pt down & offered moral
support; however pt is getting dressed & 'is done'. Dr Blankenship unable to come to the unit to speak w/pt & advised this RN pt can sign out AMA, as 'he has decision making capacity'.
This RN advised community service manager, Yarely Ott and unit support representative, Krsita Carter of the situation. raw stock drier tender, Martin Manoj also notified. Krista Carter spoke w/both Drs re: discharge & both Drs agreed pt needs to stay overnight & be evaluated for D/C in the AM.
If pt chooses to leave it will be AMA.
This RN again spoke w/pt & pt agreeable to staying long enough for this RN to get pt's discharge prescriptions sent over to pt's preferred pharmacy & for this RN to go over activity restrictions s/p PPM. However, pt will be leaving AMA.
--- NOTE | 2024-04-17 15:10 | PTCARENOTE ---
Pt's IV line & telemetry D/C'd. D/C medications & activity instructions discussed w/pt & pt's sister. Pt signed AMA form & transported out via wheelchair w/personal belongings including cell phone & photographic equipment assembler.
--- NOTE | 2024-04-18 15:54 | W.DCSUMMARY ---
Discharge Summary
Discharge Data
Date of Admission: 04/16/24
Date of Discharge: 04/17/24
-
Pending Results: No
Hospital Course
Primary diagnoses:
Syncope likely due to bradycardia and possibly exacerbated by a vasovagal episode with diarrhea
Acute on chronic heart failure with preserved ejection fraction
Hyponatremia
Secondary diagnoses:
Essential hypertension
Hyperkalemia
Hyperlipidemia
Type 2 diabetes mellitus
Acute kidney injury due to cardiorenal syndrome
Chronic obstructive pulmonary disease (due to tobacco abuse disorder)
Coronary artery disease with h/o PCI 2001
Consults:
Cardiology
Nephrology
Imaging:
Echo: EF 70-75%. No RWMA. Enlarged RV with moderately reduced RV systolic fxn. Mod dilated LA/RA. Severe MR/TR, PASP 90-95mmHg. IVC is dilated and does not collapse. Compared to prior study of 11/13/2018, significantly progressive mitral
regurgitation and tricuspid regurgitation are now noted. PASP has significantly increased (previously [address] brain: No acute intracranial abnormalities. Moderate diffuse cortical atrophy with moderate nonspecific white matter changes as described above.
CT C-spine: No acute abnormalities. Multilevel cervical degenerative disc disease.
68-year-old male initially presented with chief complaint of syncope as outlined in HPI admission. Hospital course per problem was:
Syncope: This was likely due to bradycardia and possibly exacerbated by a vasovagal episode with diarrhea. ECG (read by me): afib @ 58, L-axis, no acute ST/TW changes. He was also noted to have a junctional rhythm on admission. Patient was seen in
consultation by cardiology. He underwent permanent pacemaker placement on 04/16/24.
Acute on chronic HFpEF: Notable echocardiogram findings above and consisting of progressive MR and TR as well as elevated PASP. The patient received multiple doses of IV Lasix and was transitioned to Lasix 40mg PO BID. the patient had acute kidney
injury due to cardiorenal syndrome which improved with diuresis.
Hyponatremia: Patient's sodium on admission was 124. He was placed on a fluid restriction. His TSH and cortisol were normal. Patient was seen consultation by nephrology. His sodium improved to 130 by the time he left AMA.
Persistent afib: The patient had a history of medical noncompliance. He was initially on a heparin drip and transition to Eliquis. He underwent permanent pacemaker placement for bradycardia on 04/16/24. His sotalol dose was increased.
The patient left AGAINST MEDICAL ADVICE on 04/17/24.
Discharge Plan
-
Patient Disposition: Against Medical Advice
Discharge Diagnosis/Procedures: Pacemaker implant
Diet: Low Cholesterol and Diabetic, Carb Controlled
Driving Restrictions: No driving for 1 week
Bathing Restrictions: OK to Shower
Blood Work: BMP in one week by PCP.
Stand Alone Forms: DC Inst - Implanted Device
Referrals:
Christie Sal NP [Specified Professional Personl] - 04/23/24 9:00 am (Incision check appointment)
Zoltan Norris MD [Family Provider] - in one to two months
Dajuan Garcia MD [Non-Admitting Privileges] - in two to four weeks
Prescriptions:
New
Eliquis 5 mg Tablet
5 mg PO BID Qty: 60 0RF
dapagliflozin propanediol 10 mg Tablet
10 mg PO DAILY Qty: 30 0RF
sotalol 80 mg Tablet
80 mg PO Q12H Qty: 60 0RF
furosemide [Lasix] 40 mg tablet
40 mg PO BID Qty: 60 0RF
Continued
amlodipine 5 MG tablet
5 mg PO DAILY
Rx Instructions:
does not take anymore, not taken for months
finasteride [Propecia] 1 MG tablet
1 mg PO HS
albuterol sulfate 1 PUFF HFA aerosol inhaler
1 puff inhalation R Q4HPRN PRN (Reason: WHEEZING) Qty: 1 0RF
atorvastatin 40 MG tablet
40 mg PO HS
sildenafil [Viagra] 100 MG tablet
100 mg PO DAILYPRN PRN (Reason: ED)
metformin 500 MG tablet extended release 24 hr
2,000 mg PO QPM
Discontinued
ramipril 10 MG capsule
10 mg PO HS
aspirin 81 MG tablet,delayed release (DR/EC)
81 mg PO DAILY Qty: 30 0RF
sotalol 80 mg Tablet
80 mg PO HS
furosemide 40 MG tablet
40 mg PO DAILY
Care Plan Goals
Care Plan Goals:
Problem: Readiness for enhanced knowledge related to diagnosis and treatment plan
Goal: Understand your diagnosis and treatment plan needs, including medications if applicable.
Instructions: Know your diagnosis, underlying causes and treatment plan options, including medications if applicable. Consult with your health care team to learn about your diagnosis and treatment plan, including medications if applicable.
Discharge Date and Time
Discharge Date/Time: 04/17/24 15:15
Print Language: BULGARIAN
== END 2024-04-17 15:15 | disposition left against medical advice (07) | DRG 242 ==
LOC: IVU 11:20
PROVIDERS: Nurse Practitioner Adult Health; Nurse Practitioner Gerontology; Student in an Organized Health Care Education/Training Program; ADMITTING PHYSICIAN Internal Medicine; ATTENDING PHYSICIAN Internal Medicine; CONSULT PHYSICIAN Internal Medicine; EMERGENCY PHYSICIAN Emergency Medicine; FAMILY PHYSICIAN Family Medicine; OTHER PHYSICIAN Internal Medicine Cardiovascular Disease
PROC: 0JH606Z Insertion of Pacemaker, Dual Chamber into Chest Subcutaneous Tissue and Fascia, Open Approach (ICD-10-PCS; 2024-04-16)
PROC: 02H63JZ Insertion of Pacemaker Lead into Right Atrium, Percutaneous Approach (ICD-10-PCS; 2024-04-16)
PROC: 02HK3JZ Insertion of Pacemaker Lead into Right Ventricle, Percutaneous Approach (ICD-10-PCS; 2024-04-16)
DX: I49.5 Sick sinus syndrome (principal); I50.33 Acute on chronic diastolic (congestive) heart failure; E87.1 Hypo-osmolality and hyponatremia; I13.0 Hypertensive heart and chronic kidney disease with heart failure and stage 1 through stage 4 chronic kidney disease, or unspecified chronic kidney disease; I48.19 Other persistent atrial fibrillation; E87.20 Acidosis, unspecified; N17.9 Acute kidney failure, unspecified; N18.9 Chronic kidney disease, unspecified; E11.22 Type 2 diabetes mellitus with diabetic chronic kidney disease; E78.00 Pure hypercholesterolemia, unspecified; F17.210 Nicotine dependence, cigarettes, uncomplicated; E86.0 Dehydration; I25.10 Atherosclerotic heart disease of native coronary artery without angina pectoris; J44.9 Chronic obstructive pulmonary disease, unspecified; E87.5 Hyperkalemia; D64.9 Anemia, unspecified; I27.20 Pulmonary hypertension, unspecified; R19.7 Diarrhea, unspecified; R31.29 Other microscopic hematuria; I08.1 Rheumatic disorders of both mitral and tricuspid valves; M50.30 Other cervical disc degeneration, unspecified cervical region; W18.30XA Fall on same level, unspecified, initial encounter; Y93.01 Activity, walking, marching and hiking; Y92.002 Bathroom of unspecified non-institutional (private) residence as the place of occurrence of the external cause; Z66 Do not resuscitate; I25.2 Old myocardial infarction; Z95.5 Presence of coronary angioplasty implant and graft; Z79.84 Long term (current) use of oral hypoglycemic drugs; Z79.82 Long term (current) use of aspirin; Z91.199 Patient's noncompliance with other medical treatment and regimen due to unspecified reason; Z53.29 Procedure and treatment not carried out because of patient's decision for other reasons
CPT/HCPCS: 33208; 70450; 71045; 72125; 80048; 80053; 81003; 81015; 82533; 82570; 82962; 83036; 83735; 83880; 83935; 84156; 84300; 84443; 84484; 85025; 85027; 85730; 93005; 93306; 94640; 96361; 96374; 99285; 99406; C1785; C1892; C1898